=== PATIENT | female | born 1980 | race Two or more races ===

== ENCOUNTER 2019-03-12 21:58 | Emergency (ER) | payer MEDICARE ==
[~2019-03-12] VITALS: Ht 152.4 cm; Wt 113.4 kg
[2019-03-12 22:33] VITALS: BP 114/77
[2019-03-12 23:30] VITALS: BP 158/112
[2019-03-12 23:30] LABS: ABG PCO2 31.5 mmHg (35.0-45.0); ABG PH 7.497 (7.350-7.450); BE(B) 1.3 mmol/L (-2.0-2.0); HCO3act 23.8 mmol/L (22.0-26.0); pO2 62.6 mmHg (80.0-100.0)
--- NOTE | 2019-03-12 23:37 | ER.PDOC ---
General Chief Complaint: Cough/Congestion Stated Complaint: COUGH,CONGESTION Time seen by MD: 23:35 Source: patient Exam Limitations: no limitations History of Present Illness Initial Comments Fever, cough and congestion for 2 weeks. No fever for past few days. Timing/Duration: gradual Severity: moderate Associated Symptoms: fever/chills, runny nose, cough Allergies: Coded Allergies: No Known Allergies (Unverified , 03/12/19) Constitutional: see HPI EENTM: see HPI Respiratory: see HPI Cardiovascular: no symptoms reported Gastrointestinal: no symptoms reported All Other Systems: Reviewed and Negative Past Medical History Medical History: no pertinent history Surgical History: appendectomy Social History Alcohol Use: none Drug Use: none Physical Exam General Appearance: alert, no distress, other (obese) Nose: rhinorrhea Throat: pharynx nml, airway nml Neck: nml inspection, supple Respiratory: no resp.distress, decreased air movement, rhonchi Abdomen: non-tender, no organomegaly CVS: reg rate & rhythm, heart sounds nml Skin: color nml, no rash, warm/dry Extremities: non-tender, nml ROM, no pedal edema NEURO/PSYCH: oriented x 3, CN's nml as tested, motor nml, sensation nml, mood/affect nml Results/Orders Results/Orders Orders - JAY REBOLLEDO MD Influenza A&B (03/12/19 22:32) Strep Screen (03/12/19 22:32) Cbc With Auto Diff (03/12/19 23:14) Comprehensive Metabolic Panel (03/12/19 23:14) Arterial Blood Gas (03/12/19 23:14) Blood Culture (03/12/19 23:14) Probnp B-Type Printer Slotter Helper (03/12/19 23:14) Lactic Acid(Ml) (03/12/19 23:14) Xr Chest 2v (03/12/19 23:14) Codeine Phosphate/Guaifenesin (Robitussi (03/13/19 00:25) Vital Signs Date Time Temp Pulse Resp B/P (MAP) Pulse Ox O2 Delivery O2 Flow Rate FiO2 03/12/19 22:33 98.2 95 18 03/12/19 22:33 98.2 95 18 114/77 (89) 95 Room Air 03/12/19 22:33 98.2 95 18 95 Laboratory Tests Test 03/12/19 23:14 03/12/19 23:30 03/12/19 23:35 Blood Gas Sample Site RT BRACIAL ARTERY Blood pH 7.497 (7.350-7.450) Blood Gas PCO2 31.5 mmHg (35.0-45.0) L Blood Gas PO2 62.6 mmHg (80.0-100.0) L Blood Gas HCO3 23.8 mmol/L (22.0-26.0) Blood Gas Base Excess 1.3 mmol/L (-2.0-2.0) Abraham Test N/A Arterial Blood Oxygen Saturation 92.6 % (94.0-97.00) L Deoxyhemoglobin 7.3 % (0.0-5.0) H Carboxyhemoglobin 0.9 % (0.0-3.9) Methemoglobin 0.3 % (0.00-5.0) Total Hemoglobin 12.9 % (12.0-17.8) Total Oxygen Concentration 16.6 % (13.5-17.5) Blood Gas Temperature 37.0 Oxygen Delivery Method ROOM AIR FiO2 0.21 % (20-101) L Total Carbon Dioxide 24.8 mmol/L (23-27) Influenza Type A Antigen NEGATIVE (NEG) Influenza B Immunofluorescence NEGATIVE (NEG) Group A Streptococcus Screen NEGATIVE (NEGATIVE) White Blood Count 11.4 10^3/uL (4.5-11.0) H Red Blood Count 3.65 10^6/uL (4.00-5.20) L Hemoglobin 12.2 g/dL (12.0-15.0) Hematocrit 37.4 % (36.0-46.0) Mean Corpuscular Volume 102.5 fL (78-100) H Mean Corpuscular Hemoglobin 33.4 pg (26-34) Mean Corpuscular Hemoglobin Concent 32.6 g/dL (33-37) L Red Cell Distribution Width 17.3 % (11.5-14.5) H Platelet Count 180 10^3/uL (150-400) Mean Platelet Volume 11.4 fL (7.8-11.0) H Neutrophils (%) (Auto) 57.1 % (41.0-85.0) Lymphocytes (%) (Auto) 27.9 % (24.0-44.0) Monocytes (%) (Auto) 7.0 % (5.0-12.0) Neutrophils # (Auto) 6.5 10^3/uL (1.8-7.7) Lymphocytes # (Auto) 3.2 10^3/uL (1.0-4.8) Monocytes # (Auto) 0.8 10^3/uL (0.3-0.8) Absolute Immature Granulocyte (auto 0.21 10^3 u/L (0-2) Absolute Eosinophils (auto) 0.5 10^3/uL (0.0-0.2) H Immature Granulocytes % 1.90 % (0.00-0.50) H Eosinophils % 4.6 % (0.0-5.0) Basophils % 1.5 % (0.0-0.2) H Basophils # 0.2 10^3/uL (0.0-0.1) H Sodium Level 139 mmol/L (132-145) Potassium Level 4.0 mmol/L (3.6-5.2) Chloride Level 103.0 mmol/L (96-109) Carbon Dioxide Level 27.7 mmol/L (20.0-32) Anion Gap 12.3 Blood Urea Nitrogen 16 mg/dL (7-18) Creatinine 1.44 mg/dL (0.59-1.40) H Estimated GFR () 48.8 (>/=60) BUN/Creatinine Ratio 11.0 Glucose Level 192 mg/dL (70-110) H Lactic Acid Level 1.2 mmol/L (0.50-2.00) Calcium Level 8.5 mg/dL (8.4-10.5) Total Bilirubin 0.7 mg/dL (0.2-1.0) Aspartate Amino Transferase (AST) 43 U/L (0-35) H Alanine Aminotransferase (ALT) 79 U/L (12-78) H Alkaline Phosphatase 137 U/L (50-136) H Pro-B-Type Natriuretic Peptide 60 pg/mL (0-125) Total Protein 7.8 g/dL (6.4-8.2) Albumin 3.1 g/dL (3.4-5.0) L Globulin 4.7 Progress Progress CXR: Hazy density in both lower lung castañeda, primarily on the frontal exam, is of uncertain significance. This may represent density due to the patient's overlying breast tissues, but hazy pneumonia infiltrates cannot be totally ruled out. Recommend correlation with clinical findings and history. If needed for clinical management, noncontrast CT scan of the chest may be obtained, preferably with IV contrast, to rule out or confirmed the presence of pneumonia infiltrates. Departure Time of Disposition: 00:39 Disposition: 01 HOME, SELF-CARE Impression: Primary Impression: Acute bronchitis Condition: Stable Referrals: PCP,UNKNOWN (PCP) PRIMARY CARE PROVIDER Additional Instructions: Moxifloxacin Medrol dose pack Cheratussin AC Albuterol HFA F/U with PCP in 2-3 days Return to ED if worsening symptoms or concerns. Duration or Time Spent with Pa: 45 mins Problem Qualifiers Primary Impression: Acute bronchitis Bronchitis organism: unspecified organism Qualified Codes: J20.9 - Acute bronchitis, unspecified JAY REBOLLEDO MD Mar 12, 2019 23:37
[2019-03-12 23:43] LABS: BASOPHIL # 0.2 10^3/uL (0.0-0.1); BASOPHIL % 1.5 % (0.0-0.2); EOSINOPHIL # 0.5 10^3/uL (0.0-0.2); EOSINOPHIL % 4.6 % (0.0-5.0); LYMPHOCYTES # 3.2 10^3/uL (1.0-4.8); LYMPHOCYTES % 27.9 % (24.0-44.0); MEAN CORP HGB 33.4 pg (26-34); MONOCYTES # 0.8 10^3/uL (0.3-0.8); NEUTROPHIL # 6.5 10^3/uL (1.8-7.7); NEUTROPHILS % 57.1 % (41.0-85.0); RED CELL DISTRIBUTION WIDTH 17.3 % (11.5-14.5)
[2019-03-13 00:03] LABS: CALCIUM 8.5 mg/dL (8.4-10.5); CARBON DIOXIDE 27.7 mmol/L (20.0-32)
--- NOTE | 2019-03-13 00:12 | DIREP ---
PROCEDURE:CHEST 2 VIEWS COMPARISON:None. INDICATIONS:Cough FINDINGS: LUNGS/PLEURA:Hazy density in both lower lung castañeda. No large pleural effusion or dense alveolar consolidation. VASCULATURE:Normal. Unremarkable pulmonary vasculature. CARDIAC:Normal. No cardiac silhouette abnormality or cardiomegaly. MEDIASTINUM:Normal. No visible mass or adenopathy. BONES:No acute pathology. Mild dextroscoliosis of the lower T-spine. OTHER:Negative. CONCLUSION:Hazy density in both lower lung castañeda, primarily on the frontal exam, is of uncertain significance. This may represent density due to the patient's overlying breast tissues, but hazy pneumonia infiltrates cannot be totally ruled out. Recommend correlation with clinical findings and history. If needed for clinical management, noncontrast CT scan of the chest may be obtained, preferably with IV contrast, to rule out or confirmed the presence of pneumonia infiltrates. Dictated by: Rickey Gleason M.D. on 03/13/2019 at 00:09 AM
[2019-03-13] MEDS ORDERED: ROBITUSSIN AC PO STA (00:25)
[2019-03-13 00:30] VITALS: BP 140/69
[2019-03-13] MEDS ORDERED: ROBITUSSIN AC ONE (00:35)
[2019-03-13] MEDS ORDERED: ROCEPHIN IM STA (00:39)
[2019-03-13] MEDS ORDERED: ZITHROMAX PO STA (00:39)
[2019-03-13] MEDS ORDERED: LIDOCAINE 1% VIAL ONE (00:43)
[2019-03-13] MEDS ORDERED: ROCEPHIN ONE (00:44)
[2019-03-13] MEDS ORDERED: DECADRON IH STA (00:44)
[2019-03-13] MEDS ORDERED: ZITHROMAX ONE (00:44)
[2019-03-13] MEDS ORDERED: DUO 0.5-3(2.5) MG/3 ML IH STA (00:44)
[2019-03-13] MEDS ORDERED: SOLU-MEDROL ONE (00:44)
[2019-03-13] MEDS ORDERED: SOLU-MEDROL IM STA (00:44)
[2019-03-13] MEDS ORDERED: DUO 0.5-3(2.5) MG/3 ML IH ONE (00:46)
[2019-03-13] MEDS ORDERED: DECADRON ONE (00:46)
[2019-03-13 01:10] VITALS: BP 111/76
[2019-03-13 01:12] LABS: LYMPHOCYTE 24 % (25-36); MONOCYTE 8 % (3-9); SEGMENTED NEUTROPHILS 68 % (31-76)
== END 2019-03-13 01:10 | disposition home or self-care (01) ==
LOC: ER 21:58
DX: J20.9 Acute bronchitis, unspecified (principal)
CPT/HCPCS: 36415; 71046; 80053; 82803; 83605; 83880; 85025; 87040 ×2; 87070; 87804 ×2; 87880; 94640; 96372 ×2; 99285; J0696; J0745; J1100; J2001; J2930; J7620; Q0144

== ENCOUNTER 2021-10-05 11:39 | Inpatient (IN) | payer MEDICARE, MEDICAID ==
[~2021-10-05] VITALS: Ht 152.4 cm; Wt 99.8 kg
[2021-10-05] VITALS (7 sets, daily range): BP systolic 105–125; BP diastolic 61–81
--- NOTE | 2021-10-05 12:45 | NUR ---
BROOKE VELARDEA ON PHONE WITH DR COX TO DISCUSS POSSIBLE NEED OF CONSULT.
--- NOTE | 2021-10-05 12:47 | NUR ---
[facility] TO CONSULT CARE OF THE PT PER EDP
--- NOTE | 2021-10-05 13:23 | DIREP ---
PROCEDURE:XRAY HAND MIN 3 VW-LT COMPARISON:None. INDICATIONS:Infection R/O Osteomyelitis FINDINGS: BONES:Osteolysis is seen of the tuft of the distal phalanx of the thumb. JOINTS:Normal. SOFT TISSUES:Soft tissue swelling is seen of the thumb. OTHER:No additional findings. CONCLUSION:There is soft tissue swelling of the thumb with osteolysis of the tuft of the distal phalanx of the thumb suspicious for osteomyelitis. Dictated by: Mason Whitney M.D. on 10/05/2021 at 01:20 PM
[2021-10-05] MEDS ORDERED: VANCOMYCIN HCL 1 GM in NS 250ML 250 ML IV STA (13:53)
[2021-10-05] MEDS ORDERED: ZOSYN 3.375 GM 3.375 GM in NS 100ML 100 ML IV STA (13:53)
[2021-10-05] MEDS ORDERED: MORPHINE SULFATE IV STA (13:53)
[2021-10-05] MEDS ORDERED: MORPHINE SULFATE ONE (14:02)
[2021-10-05] MEDS ORDERED: NS 100ML 100 ML IV ONE ×2 (14:03→21:34)
[2021-10-05] MEDS ORDERED: NS 250ML 250 ML ONE ×2 (14:36→21:35)
[2021-10-05] MEDS ORDERED: VANCOMYCIN HCL 1 GM ONE (14:37)
[2021-10-05 15:23] LABS: BASOPHIL % 0.3 % (0.0-0.2); EOSINOPHIL # 0.3 10^3/uL (0.0-0.2); EOSINOPHIL % 2.7 % (0.0-5.0); LYMPHOCYTES # 3.09 10^3/uL1 (1.0-4.8); LYMPHOCYTES % 27.6 % (24.0-44.0); MEAN CORP HGB 33.4 pg (26-34); MONOCYTES # 0.6 10^3/uL (0.3-0.8); NEUTROPHIL # 7.1 10^3/uL (1.8-7.7); NEUTROPHILS % 63.2 % (41.0-85.0); PLATELET COUNT 307 10^3/uL (150-400); RED CELL DISTRIBUTION WIDTH 17.7 % (11.5-14.5)
[2021-10-05 15:25] LABS: CARBON DIOXIDE 25.6 mmol/L (20.0-32)
--- NOTE | 2021-10-05 16:14 | ER.PDOC ---
General Chief Complaint: Extremities Stated Complaint: EXTREMETIES Time seen by MD: 12:30 Source: patient, family Exam Limitations: no limitations History of Present Illness Initial Comments Infected left thumb for 8 days. Patient was seen by a Provider in [place] and given Acyclovir for 4 weeks ago. Since then, infection has gotten worse. Patient is complaining of pain and increased swelling. Severity: severe Quality: painful Identified Cause: no Allergies: Coded Allergies: codeine (Verified Allergy, Unknown, 10/05/21) Past Medical History Medical History: other (Down syndrome) Surgical History: cholecystectomy Family History Significant Family History: no pertinent family hx Social History Smoking: non-smoker Alcohol Use: none Drug Use: none Constitutional: no symptoms reported EENTM: no symptoms reported Respiratory: no symptoms reported Cardiovascular: no symptoms reported Gastrointestinal: no symptoms reported Musculoskeletal: see HPI Skin: see HPI All Other Systems: Reviewed and Negative Physical Exam General Appearance: alert, no distress Skin: abscess, pointing, fluctuant, with erythema (with bluish discoloration od skin of distal thumb) Location: LUE (thumb) With: warmth, tenderness, swelling, inflammation EENT: eyes nml inspection, lips/gums nml, pharynx nml Neck: trachea midline, no swelling Respiratory: no resp. distress, breath sounds nml CVS: reg. rate & rhythm, heart sounds nml Abdomen: non-tender, no organomegaly NEURO/PSYCH: oriented x 3, CN's nml as tested, motor nml, sensation nml, mood/affect nml Comments Distal left thumb has necrotic tissue. Incision and Drainage Incision and Drainage : Site: left thumb Blade Size: 11 I & D Procedure: betadine prep, probe/break up loculation, irrigated cavity w/saline, culture/gram stain, multiple sites Results/Orders Results/Orders Orders - JAY REBOLLEDO MD Xr Hand Lt (10/05/21 13:01) Wound Culture & Gram Stain (10/05/21 13:08) Blood Culture (10/05/21 13:53) Morphine Sulfate (Morphine Sulfate) (10/05/21 13:53) Vancomycin Hcl (Vancomycin Hcl) (10/05/21 13:53) Piperacillin Sodium/Tazobactam (Zosyn 3. (10/05/21 13:53) Lactic Acid(Ml) (10/05/21 13:54) Morphine Sulfate (Morphine Sulfate) (10/05/21 14:02) 0.9 % Sodium Chloride (Ns 100ml) (10/05/21 14:03) 0.9 % Sodium Chloride (Ns 250ml) (10/05/21 14:36) Vancomycin Hcl (Vancomycin Hcl) (10/05/21 14:37) Cbc With Auto Diff (10/05/21 15:13) Basic Metabolic Panel (10/05/21 15:13) PT (10/05/21 15:13) Partial Thromboplastin Time. (10/05/21 15:13) Vital Signs Date Time Temp Pulse Resp B/P (MAP) Pulse Ox O2 Delivery O2 Flow Rate FiO2 10/05/21 15:12 98.9 67 16 115/61 (79) 97 Room Air* 0 10/05/21 14:06 99.7 77 16 125/66 (85) 97 Room Air* 0 10/05/21 13:19 99.7 83 16 105/64 (78) 97 Room Air* 0 10/05/21 12:15 99.7 92 16 97 10/05/21 11:55 99.7 92 16 125/81 (96) 97 Room Air* 0 10/05/21 11:55 99.7 92 16 125/81 (96) 97 Room Air* 0 10/05/21 11:55 99.7 92 16 Administered Medications Medications (Trade) Dose Ordered Sig/Roxanne Route PRN Reason Start Time Stop Time Status Last Admin Dose Admin Morphine Sulfate (Morphine Sulfate) 4 mg STAT STAT IV 10/05/21 13:53 10/05/21 13:54 DC 10/05/21 14:20 4 MG Piperacillin Sod/ Tazobactam Sod 3.375 gm/Sodium Chloride 100 ml @ 200 mls/hr STAT STAT IV 10/05/21 13:53 10/05/21 14:22 DC 10/05/21 14:20 200 MLS/HR Vancomycin HCl 1 gm/Sodium Chloride 250 ml @ 175 mls/hr STAT STAT IV 10/05/21 13:53 10/05/21 15:18 DC 10/05/21 14:54 175 MLS/HR Laboratory Tests Test 10/05/21 14:00 10/05/21 14:18 10/05/21 15:13 White Blood Count 11.2 10^3/uL (4.5-11.0) H Red Blood Count 3.32 10^6/uL (4.00-5.20) L Hemoglobin 11.1 g/dL (12.0-15.0) L Hematocrit 36.3 % (36.0-46.0) Mean Corpuscular Volume 109.3 fL (78-100) H Mean Corpuscular Hemoglobin 33.4 pg (26-34) Mean Corpuscular Hemoglobin Concent 30.6 g/dL (33-36.5) L Red Cell Distribution Width 17.7 % (11.5-14.5) H Platelet Count 307 10^3/uL (150-400) Mean Platelet Volume 12.4 fL (7.8-11.0) H Neutrophils (%) (Auto) 63.2 % (41.0-85.0) Lymphocytes (%) (Auto) 27.6 % (24.0-44.0) Monocytes (%) (Auto) 5.0 % (5.0-12.0) Neutrophils # (Auto) 7.1 10^3/uL (1.8-7.7) Lymphocytes # (Auto) 3.09 10^3/uL1 (1.0-4.8) Monocytes # (Auto) 0.6 10^3/uL (0.3-0.8) Absolute Immature Granulocyte (auto 0.13 10^3 u/L (0-2) Absolute Eosinophils (auto) 0.3 10^3/uL (0.0-0.2) H Immature Granulocytes % 1.20 % (0.00-0.50) H Eosinophils % 2.7 % (0.0-5.0) Basophils % 0.3 % (0.0-0.2) H Basophils # 0.0 10^3/uL (0.0-0.1) Sodium Level 140 mmol/L (132-145) Potassium Level 4.0 mmol/L (3.6-5.2) Chloride Level 104.0 mmol/L (96-109) Carbon Dioxide Level 25.6 mmol/L (20.0-32) Glucose Level 143 mg/dL (70-110) H Blood Urea Nitrogen 13 mg/dL (7-18) Creatinine 1.44 mg/dL (0.59-1.40) H Calcium Level 8.3 mg/dL (8.4-10.5) L Anion Gap 14.4 Estimated GFR () 48.3 (>/=60) Est GFR (CKD-EPI)(Non-Afr Surinamese) 39.9 (>/=60) BUN/Creatinine Ratio 9.0 Lactic Acid Level 1.6 mmol/L (0.5-1.9) Prothrombin Time 11.0 SEC (9.1-11.5) Prothrombin Time INR (Non-Therap) 1.1 Activated Partial Thromboplast Time 29.6 SEC (22.5-33.1) Progress Progress X rays left thumb: There is soft tissue swelling of the thumb with osteolysis of the tuft of the distal phalanx of the thumb suspicious for osteomyelitis. Dr. Titus came and saw patient in the ED. ER DEPART Departure Time of Disposition: 16:15 Disposition: 09 ADMITTED INPATIENT Impression: Primary Impression: Osteomyelitis of finger of left hand Additional Impression: Abscess around left thumbnail Condition: Improved Referrals: PCP,UNKNOWN (PCP) PRIMARY CARE PROVIDER Comments Admitted to Dr. Monahan. Spoke with Dr. Titus who will consultl Duration or Time Spent with Pa: 45 min Problem Qualifiers JAY REBOLLEDO MD Oct 05, 2021 16:14
--- NOTE | 2021-10-05 16:38 | NUR ---
REPORT GIVEN TO MED SURG NURSE.
--- NOTE | 2021-10-05 18:26 | PCM.HP ---
HISTORY & PHYSICAL HISTORY & PHYSICAL DATE OF ADMISSION: October 05, 2021 CHIEF COMPLAINT: Left thumb infection over 1 week, Severe pain HISTORY OF PRESENT ILLNESS: 40-year-old female with previous history of Down syndrome was apparently in her usual health and about 1 week prior to this admission with her sister noticed her left thumb was swollen and some erythema was noted and patient was taken to the local emergency room where she was found diagnosed with herpetic mahsa infection and started on acyclovir and Tylenol for pain control but the symptoms progressively got worse and patient developed severe pain and discoloration of the thumb therefore patient was brought to this hospital for further evaluation and found to have possible osteomyelitis with abscess formation patient was admitted for further management family denies any medical condition other than Down syndrome ALLERGIES: Codeine-Reaction not known, Patient tolerated morphine well CURRENT MEDICATIONS: Acyclovir, Tylenol, OTC Motrin PAST MEDICAL HISTORY: Down syndrome, cholecystectomy and appendectomy SOCIAL HISTORY: Living with her mother currently she was brought here to this down from [place] and staying with her sister FAMILY HISTORY: Mother has diabetes mellitus hypertension and thyroid disease Sister has asthma and diabetes mellitus REVIEW OF SYSTEMS: No fever chills or rigors severe left thumb pain controlled with morphine no swallowing difficulty no chest pain shortness of breath cough or wheezing no abdominal pain no diarrhea no dysuria or hematuria head loss. More than 5 years prior to this admission All systems reviewed and negative except mentioned above VITAL SIGNS: Vital Signs Date Time Temp Pulse Resp B/P (MAP) Pulse Ox O2 Delivery O2 Flow Rate FiO2 10/05/21 17:53 Room Air 0.00 10/05/21 17:51 Room Air 0.00 10/05/21 16:42 62 16 116/72 (87) 96 Room Air* 0 10/05/21 15:12 98.9 67 16 115/61 (79) 97 Room Air* 0 10/05/21 14:06 99.7 77 16 125/66 (85) 97 Room Air* 0 10/05/21 13:19 99.7 83 16 105/64 (78) 97 Room Air* 0 10/05/21 12:15 99.7 92 16 97 10/05/21 11:55 99.7 92 16 125/81 (96) 97 Room Air* 0 10/05/21 11:55 99.7 92 16 125/81 (96) 97 Room Air* 0 21 10/05/21 11:55 99.7 92 16 PHYSICAL EXAMINATION: General patient is sitting on the bed not in acute distress pain is well controlled after morphine HEENT anicteric sclera pupil react light, Up slanting palpebral fissure Lungs: Air entry symmetrical no Rales or rhonchi heard Heart S1-S2 heard no murmur gallop appreciated Abdomen obese nontender bowel sounds present, No guarding no rigidity Extremity left thumb is dressed and no drainage noted over the dressing no phlebitis noted in the hand LABORATORY DATA: Laboratory Tests Test 10/05/21 14:00 10/05/21 14:18 10/05/21 15:13 White Blood Count 11.2 10^3/uL (4.5-11.0) Red Blood Count 3.32 10^6/uL (4.00-5.20) Hemoglobin 11.1 g/dL (12.0-15.0) Hematocrit 36.3 % (36.0-46.0) Mean Corpuscular Volume 109.3 fL (78-100) Mean Corpuscular Hemoglobin 33.4 pg (26-34) Mean Corpuscular Hemoglobin Concent 30.6 g/dL (33-36.5) Red Cell Distribution Width 17.7 % (11.5-14.5) Platelet Count 307 10^3/uL (150-400) Mean Platelet Volume 12.4 fL (7.8-11.0) Neutrophils (%) (Auto) 63.2 % (41.0-85.0) Lymphocytes (%) (Auto) 27.6 % (24.0-44.0) Monocytes (%) (Auto) 5.0 % (5.0-12.0) Neutrophils # (Auto) 7.1 10^3/uL (1.8-7.7) Lymphocytes # (Auto) 3.09 10^3/uL1 (1.0-4.8) Monocytes # (Auto) 0.6 10^3/uL (0.3-0.8) Absolute Immature Granulocyte (auto 0.13 10^3 u/L (0-2) Absolute Eosinophils (auto) 0.3 10^3/uL (0.0-0.2) Immature Granulocytes % 1.20 % (0.00-0.50) Eosinophils % 2.7 % (0.0-5.0) Basophils % 0.3 % (0.0-0.2) Basophils # 0.0 10^3/uL (0.0-0.1) Sodium Level 140 mmol/L (132-145) Potassium Level 4.0 mmol/L (3.6-5.2) Chloride Level 104.0 mmol/L (96-109) Carbon Dioxide Level 25.6 mmol/L (20.0-32) Glucose Level 143 mg/dL (70-110) Blood Urea Nitrogen 13 mg/dL (7-18) Creatinine 1.44 mg/dL (0.59-1.40) Calcium Level 8.3 mg/dL (8.4-10.5) Anion Gap 14.4 Estimated GFR () 48.3 (>/=60) Est GFR (CKD-EPI)(Non-Afr Faroese) 39.9 (>/=60) BUN/Creatinine Ratio 9.0 Lactic Acid Level 1.6 mmol/L (0.5-1.9) Prothrombin Time 11.0 SEC (9.1-11.5) Prothrombin Time INR (Non-Therap) 1.1 Activated Partial Thromboplast Time 29.6 SEC (22.5-33.1) IMAGING: X-ray hand CONCLUSION:There is soft tissue swelling of the thumb with osteolysis of the tuft of the distal phalanx of the thumb suspicious for osteomyelitis. SUMMARY: 40-year-old female with Down syndrome developed left thumb possible paronychia progressed to abscess formation and osteomyelitis We will start on empiric antibiotic with vancomycin and Zosyn for now and surgical consult was obtained with Dr. Titus for possible debridement, pain control with morphine 4 mg IV Q6 hourly as needed, tetanus shot, test also will be ordered, considering osteomyelitis may need 6 weeks of IV antibiotic, Will consult case management for further arrangement ASSESSMENT/PLAN: Left thumb first digit osteomyelitis with abscess Down syndrome Obesity Early menopause Plan: Empiric antibiotic, surgical consult, Pain control, PT OT, Reevaluate the patient in a.m. DAWSON BYERS MD Oct 05, 2021 18:25
[2021-10-05] MEDS ORDERED: ZOSYN 3.375 GM 3.375 GM in NS 100ML 100 ML IV SCH (18:30)
[2021-10-05] MEDS ORDERED: BOOSTRIX IM ONE ×2 (18:30→21:41)
[2021-10-05] MEDS ORDERED: VANCOMYCIN 1.25 GM/250 ML BAG 250 ML IV SCH (18:30)
--- NOTE | 2021-10-05 19:01 | NUR ---
REPORT REPORT TO ONCOMING SHIFT
[2021-10-05] MEDS: ZOSYN 3.375 GM 3.375 GM in NS 100ML 100 ML IV SCH (21:52)
[2021-10-06 01:17] VITALS: BP 107/51
[2021-10-06] MEDS ORDERED: NS 100ML 100 ML IV ONE (02:34)
[2021-10-06] MEDS: ZOSYN 3.375 GM 3.375 GM in NS 100ML 100 ML IV SCH ×2 (02:43→08:30)
[2021-10-06] MEDS: TYLENOL PO PRN (02:53)
[2021-10-06 05:43] VITALS: BP 101/58
[2021-10-06 07:07] VITALS: BP 105/67
[2021-10-06 08:50] LABS: BASOPHIL % 0.3 % (0.0-0.2); EOSINOPHIL # 0.3 10^3/uL (0.0-0.2); EOSINOPHIL % 2.9 % (0.0-5.0); LYMPHOCYTES # 3.19 10^3/uL1 (1.0-4.8); MEAN CORP HGB 33.5 pg (26-34); MONOCYTES # 0.4 10^3/uL (0.3-0.8); MONOCYTES % 5.1 % (5.0-12.0); NEUTROPHIL # 4.6 10^3/uL (1.8-7.7); NEUTROPHILS % 53.8 % (41.0-85.0); RED CELL DISTRIBUTION WIDTH 16.9 % (11.5-14.5)
[2021-10-06 08:52] LABS: CARBON DIOXIDE 25.2 mmol/L (20.0-32)
[2021-10-06] MEDS ORDERED: NS 250ML 250 ML ONE (09:51)
[2021-10-06] MEDS: VANCOMYCIN 1.25 GM/250 ML BAG 250 ML IV SCH ×2 (10:48→23:01)
[2021-10-06 11:17] VITALS: BP 112/58
[2021-10-06] MEDS: OXY-IR PO PRN (11:33)
--- NOTE | 2021-10-06 11:56 | PRM.PN ---
Subjective Subjective Date: Oct 06, 2021 Time: 09:00 Subjective Awake, does not appear to be in distress, left vomiting in dressing. Review of Systems Musculoskeletal: hand pain (Left thumb pain) Other Review of other 14 systems negative except was mentioned above. Allergies: Coded Allergies: codeine (Verified Allergy, Unknown, 10/05/21) Objective Vitals and I/O Vital Sign - Last 24 Hours 10/05/21 10/05/21 10/05/21 10/05/21 11:55 11:55 11:55 12:15 Temp 99.7 99.7 99.7 99.7 Pulse 92 92 92 92 Resp 16 16 16 16 B/P (MAP) 125/81 (96) 125/81 (96) Pulse Ox 97 97 97 O2 Delivery Room Air* Room Air* O2 Flow Rate 0 0 FiO2 10/05/21 10/05/21 10/05/21 10/05/21 13:19 14:06 15:12 16:42 Temp 99.7 99.7 98.9 Pulse 83 77 67 62 Resp 16 16 16 16 B/P (MAP) 105/64 (78) 125/66 (85) 115/61 (79) 116/72 (87) Pulse Ox 97 97 97 96 O2 Delivery Room Air* Room Air* Room Air* Room Air* O2 Flow Rate 0 0 0 0 FiO2 10/05/21 10/05/21 10/05/21 10/06/21 17:51 17:53 20:13 00:16 Temp 98.0 Pulse 69 Resp 18 B/P (MAP) 110/74 (86) Pulse Ox 95 O2 Delivery Room Air Room Air Room Air* Room Air O2 Flow Rate 0.00 0.00 0 0.00 FiO2 10/06/21 10/06/21 10/06/21 10/06/21 01:17 05:43 07:07 07:57 Temp 97.6 97.5 98.0 Pulse 65 67 59 Resp 16 17 19 B/P (MAP) 107/51 (69) 101/58 (72) 105/67 (80) Pulse Ox 95 98 92 O2 Delivery Room Air* Room Air* Room Air* Room Air O2 Flow Rate 0 0 0 0.00 FiO2 10/06/21 11:17 Temp 98.2 Pulse 70 Resp 18 B/P (MAP) 112/58 (76) Pulse Ox 93 O2 Delivery Room Air* O2 Flow Rate 0 FiO2 21 Intake and Output 10/06/21 07:00 Intake Total 750 ml Balance 750 ml General: Alert, No acute distress HEENT: Atraumatic Neck: Supple, No JVD Lungs: Clear to auscultation, Normal air movement Heart: Regular rate, Normal S1, Normal S2 Abdomen: Soft, No tenderness Extremities: No clubbing, No cyanosis Skin: Other (Left thumb dressing) Neuro: Sensation intact, Other (Patient has Down syndrome) Psych/Mental Status: Other (Down syndrome) All Results(Lab/Rad) Laboratory Tests Test 10/05/21 14:00 10/05/21 14:18 10/05/21 15:13 10/06/21 04:05 White Blood Count 11.2 10^3/uL 8.6 10^3/uL Red Blood Count 3.32 10^6/uL 3.28 10^6/uL Hemoglobin 11.1 g/dL 11.0 g/dL Hematocrit 36.3 % 35.0 % Mean Corpuscular Volume 109.3 fL 106.7 fL Mean Corpuscular Hemoglobin 33.4 pg 33.5 pg Mean Corpuscular Hemoglobin Concent 30.6 g/dL 31.4 g/dL Red Cell Distribution Width 17.7 % 16.9 % Platelet Count 307 10^3/uL 291 10^3/uL Mean Platelet Volume 12.4 fL 12.3 fL Neutrophils (%) (Auto) 63.2 % 53.8 % Lymphocytes (%) (Auto) 27.6 % 37.0 % Monocytes (%) (Auto) 5.0 % 5.1 % Neutrophils # (Auto) 7.1 10^3/uL 4.6 10^3/uL Lymphocytes # (Auto) 3.09 10^3/uL1 3.19 10^3/uL1 Monocytes # (Auto) 0.6 10^3/uL 0.4 10^3/uL Absolute Immature Granulocyte (auto 0.13 10^3 u/L 0.08 10^3 u/L Absolute Eosinophils (auto) 0.3 10^3/uL 0.3 10^3/uL Immature Granulocytes % 1.20 % 0.90 % Eosinophils % 2.7 % 2.9 % Basophils % 0.3 % 0.3 % Basophils # 0.0 10^3/uL 0.0 10^3/uL Sodium Level 140 mmol/L 141 mmol/L Potassium Level 4.0 mmol/L 3.7 mmol/L Chloride Level 104.0 mmol/L 105.0 mmol/L Carbon Dioxide Level 25.6 mmol/L 25.2 mmol/L Glucose Level 143 mg/dL 138 mg/dL Blood Urea Nitrogen 13 mg/dL 17 mg/dL Creatinine 1.44 mg/dL 1.49 mg/dL Calcium Level 8.3 mg/dL 7.9 mg/dL Anion Gap 14.4 14.5 Estimated GFR () 48.3 46.4 Est GFR (CKD-EPI)(Non-Afr Egyptian) 39.9 38.4 BUN/Creatinine Ratio 9.0 11.0 Lactic Acid Level 1.6 mmol/L Prothrombin Time 11.0 SEC Prothrombin Time INR (Non-Therap) 1.1 Activated Partial Thromboplast Time 29.6 SEC Thyroid Stimulating Hormone (TSH) 58.190 mIU/mL Serum HCG, Qualitative NEGATIVE Current Medications Medications (Trade) Dose Ordered Sig/Roxanne Route PRN Reason Start Time Stop Time Status Last Admin Dose Admin Morphine Sulfate (Morphine Sulfate) 4 mg STAT STAT IV 10/05/21 13:53 10/05/21 13:54 DC 10/05/21 14:20 Vancomycin HCl 1 gm/Sodium Chloride 250 ml @ 175 mls/hr STAT STAT IV 10/05/21 13:53 10/05/21 15:18 DC 10/05/21 14:54 Piperacillin Sod/ Tazobactam Sod 3.375 gm/Sodium Chloride 100 ml @ 200 mls/hr STAT STAT IV 10/05/21 13:53 10/05/21 14:22 DC 10/05/21 14:20 Morphine Sulfate (Morphine Sulfate) 2 mg STK-MED ONCE .ROUTE 10/05/21 14:02 10/05/21 14:03 DC Sodium Chloride 100 ml @ ud STK-MED ONCE IV 10/05/21 14:03 10/05/21 14:03 DC Sodium Chloride 250 ml @ ud STK-MED ONCE .ROUTE 10/05/21 14:36 10/05/21 14:37 DC Vancomycin HCl 1 ml @ ud STK-MED ONCE .ROUTE 10/05/21 14:37 10/05/21 14:37 DC Piperacillin Sod/ Tazobactam Sod 3.375 gm/Sodium Chloride 100 ml @ 200 mls/hr Q6H IV 10/05/21 18:30 10/05/21 21:36 DC Morphine Sulfate (Morphine Sulfate) 4 mg Q6HR PRN IV PAIN 7 - 10 10/05/21 18:30 11/04/21 18:29 Acetaminophen (Tylenol) 650 mg Q6H PRN PO PAIN 1 - 3 10/05/21 18:30 11/04/21 18:29 10/06/21 02:53 Diphtheria/ Tetanus/Acell Pertussis (Boostrix) 0.5 ml ONCE ONCE IM 10/05/21 18:30 10/05/21 19:54 DC 10/05/21 22:43 Oxycodone HCl (Oxy-Ir) 5 mg Q6HR PRN PO pain 4-6 10/05/21 20:30 11/04/21 20:29 10/06/21 11:33 Sodium Chloride 100 ml @ ud STK-MED ONCE IV 10/05/21 21:34 10/05/21 21:34 DC Sodium Chloride 250 ml @ ud STK-MED ONCE .ROUTE 10/05/21 21:35 10/05/21 21:35 DC Piperacillin Sod/ Tazobactam Sod 3.375 gm/Sodium Chloride 100 ml @ 200 mls/hr Q6H IV 10/05/21 20:30 11/04/21 20:29 10/06/21 08:30 Diphtheria/ Tetanus/Acell Pertussis (Boostrix) 0.5 ml STK-MED ONCE IM 10/05/21 21:41 10/05/21 21:41 DC Sodium Chloride 100 ml @ ud STK-MED ONCE IV 10/06/21 02:34 10/06/21 02:35 DC Sodium Chloride 250 ml @ ud STK-MED ONCE .ROUTE 10/06/21 09:51 10/06/21 09:51 DC Assessment/Plan Assessment/Plan Assessment/Plan 40-year-old female with Down syndrome developed left thumb possible paronychia progressed to abscess formation and osteomyelitis We will start on empiric antibiotic with vancomycin and Zosyn for now and surgical consult was obtained with Dr. Titus for possible debridement, pain control with morphine 4 mg IV Q6 hourly as needed, tetanus shot, test also will be ordered, considering osteomyelitis may need 6 weeks of IV antibiotic, Will consult case management for further arrangement ASSESSMENT/PLAN: Left thumb first digit osteomyelitis with abscess Down syndrome Obesity Early menopause Plan: Empiric antibiotic, orthopedic consult, Pain control Problems: (1) Osteomyelitis of finger of left hand Status: Acute ICD Code: M86.9 - Osteomyelitis, unspecified SNOMED: [id number], [id number] (2) Abscess around left thumbnail Status: Acute ICD Code: L03.012 - Cellulitis of left finger SNOMED: [id number], [id number] (3) Down syndrome ICD Code: Q90.9 - Down syndrome, unspecified SNOMED: 05731214, [id number] SILVANA CARRILLO MD Oct 06, 2021 11:56
[2021-10-06] MEDS: LACTATED RINGERS 1,000 ML IV SCH (12:01)
[2021-10-06] MEDS: MAXIPIME 1 GM in NS 100ML 100 ML IV SCH ×2 (13:51→21:49)
[2021-10-06] MEDS ORDERED: LIDOCAINE HCL VISCOUS ONE (15:07)
[2021-10-06] MEDS: MORPHINE SULFATE IV PRN (15:15)
[2021-10-06] MEDS ORDERED: XYLOCAINE TP PRN (15:30)
[2021-10-06 16:06] VITALS: BP 110/62
--- NOTE | 2021-10-06 18:00 | NUR ---
DISCHARGE PLAN PER ID DAILY MEETING - PATIENT WILL NEED 6 WEEKS OF IV ABX THREAPY AFTER WOUND CULTURES ID AND SENS COMPLETED. [email or web address] AND VISITED WITH PATIENT'S SISTER - AL BLANCHARD ABOUT DISCHARGE PLANS, NEEDS AND GOALS. PER AL - PATIENT'S SISTER AND PATIENT'S MOTHER BOTH HAVE DOWN SYNDROME AND "THEY CAN NOT BE APART FROM EACH OTHER." PATIENT WAS LIVING IN [place], [place], BUT PATIENT AND PATIENT'S MOM WILL BE STAYING WITH PATIENT'S SISTER FOR AT LEAST 6 MONTHS OR MORE. PATIENT'S BROTHER STILL GETS THE MAIL FROM PATIENT'S ADDRESS IN [place] AND SENDS TO THEM WHEN VERIFYING ADDRESS. PATIENT CURRENTLY HAS A WALKER AND WHEELCHAIR AND CONTRIBUTES TO CONVERSATION AND HAS "TV, COLORING BOOK, PAPER." WHEN ASKED ABOUT ANY MEDICAL EQUIPMENT IN THE HOME. PATIENT PCP IN [facility] WAS DR HERNANDEZ, BUT HE RECENTLY RETIRED AND PATIENT HAS A F/U APPT WITH [facility] IN [place], [place] ON OCT 28, 2021 AND THEY PLAN ON KEEPING THAT APPT. KAILASH SPOKE WITH AL ABOUT DISCHARGE OPTIONS OF PATIENT GOING TO LTAC AND PER AL "THEY CAN NOT HANDLE BEING APART FROM EACH OTHER." AND SHE DECLINES ANY LTAC OR SNF. KAILASH EDUCATED ON PCP WHILE PATIENT IN THIS AREA AND AL WOULD LIKE TO GET PATIENT SET UP WITH A PCP IN [place]. AL EDUCATED ON THE POSSIBILITY OF PATIENT NEEDING IV ABX THERAPY FOR 6 WEEKS AND REQUEST TO SEE IF THEY CAN DO IV ABX THERAPY@HOME. PER AL - AL HAS SEVERAL ADULT KIDS AND HER AND HER SPOUSE THAT CAN LEARN HOW TO DO IV THERAPY IF ABLE TO DO@HOME. REPORTS THAT HER DIL WORKS FOR [facility] [employer] AND WOULD LIKE [facility] [employer] IF POSSIBLE. WOULD LIKE TO HAVE [facility] FOR IV ABX THERAPY WHEN ABX CHOSEN BY DOCTOR, IF NEEDED. AL SIGNS [facility] CHOICE LETTER OF THE SAME AND [facility] VENDOR OF CHOICE LETTER FOR CHART. CM OBTAINED PACKET FOR PCP FROM [facility] AND GAVE TO AL TO FILL OUT. CM SPOKE WITH PATIENT'S NURSE DEBBIE AND SHE WILL FAX IT TO [facility] WHEN COMPLETED. KAILASH SPOKE WITH [email or web address]@[email or web address] AND SHE IS GOING TO CHECK PATIENT'S INSURANCE AND SEE IF PATIENT IS IN NETWORK AND THEY CAN ACCEPT PATIENT AND WILL LET CM KNOW. CM WILL CONTINUE TO FOLLOW. Addendum: 10/07/21 at 1630 by Lizy Parmar RN,Case Managemen RN CM CONTACTED LENARD [email or web address] AND FAXED INITIAL CLINICALS TO [facility] WITH INQUIRY OF [facility] ABLE TO LET PATIENT'S MOM WITH DOWN SYNDROME STAY WITH PATIENT. INFORMED@THAT TIME PER LENARD CHERRY THAT IT WAS AN OPTION. KAILASH @BEDSIDE AND SPOKE WITH AL - PATIENT'S SISTER AND INFORMED THAT PATIENT'S MOM COULD STAY WITH PATIENT 04/10 IF THEY WANTED TO GO TO LTAC INSTEAD OF HOME FOR 6 WEEKS OF IV ABX THERAPY. AL REPORTS THAT THEY WOULD PREFER TO GO HOME WITH IV ABX AND HOME HEALTH. AL HAD FILLED OUT PATIENT'S PAPERWORK AND PER JOANNE - PATIENT'S NURSE SHE FAXED THE INFORMATION OVER TO [facility] YESTERDAY. KAILASH CONTACTED [facility] AND STILL AWAITING TO SEE IF DR MERAZ WILL ACCEPT PATIENT FOR PCP. KAILASH NOTIFIED DR PINA THAT PATIENT'S CULTURES RETURNED AND INFORMED@THAT TIME THAT HE HAD CONSULTED WITH INFECTION TELE DOC AND THAT THEY WOULD KNOW IN THE MORNING WHICH ABX AND FOR HOW LONG. KAILASH SPOKE WITH AL AND AL WOULD PREFER [facility] IF POSSIBLE, BUT IF DOCTOR NEEDS TO ORDER ONE IN THE AREA THAT SHE IS GOOD WITH THAT ALSO. KAILASH WILL CONTINUE TO FOLLOW. KAILASH CONTACTED AL AND PATIENT WILL BE GOING TO PATIENT'S SISTER'S HOME AL BLANCHARD@[id number] IN [place], [place]. CM UPDATED PATIENT'S INFO IN ADM.
[2021-10-06 20:00] VITALS: BP 90/42
[2021-10-07 00:18] VITALS: BP 91/51
[2021-10-07] MEDS: TYLENOL PO PRN (01:31)
--- NOTE | 2021-10-07 03:13 | CNH ---
DATE OF CONSULTATION: 10/06/2021 DICTATOR NAME: George Titus MD HISTORY OF PRESENT ILLNESS: The patient is a 40-year-old female who began having pain and swelling about the left thumb approximately 7 to 8 days ago. The patient was seen in [place] and placed on some acyclovir. The patient was seen in the Emergency Room yesterday by Dr. Arredondo with complaints of swelling and pain about the thumb. The x-ray showed some osteolysis about the very tip of the distal phalanx. The patient's white count was elevated at 11.2. The patient had an I and D of the thumb performed in the Emergency Room by Dr. Arredondo. The patient's cultures have grown out gram-positive cocci. The exam of the thumb shows that she has a distal incision about her thumb where Dr. Arredondo performed an I and D. She has diffuse swelling and redness. The patient had some partial thickness skin necrosis extending from the middle of the proximal phalanx distally to the fingertip. ASSESSMENT: Osteomyelitis of the left thumb distal phalanx with skin necrosis. PLAN: The patient will be admitted and started on IV antibiotics. I will have the wound care team debride some of the necrotic material and basically let the skin declare itself. At some point, she will need I and D with debridement of the distal portion of her distal phalanx, but at this point, I would prefer the skin to declare itself before we proceed with other surgical intervention. The patient and the family understand the treatment plan and agree. George Titus MD DR: ANTOINE/KENA/VIKASH TID: [id number] RECEIPT: [id number]
[2021-10-07 04:11] VITALS: BP 108/72
[2021-10-07] MEDS: LACTATED RINGERS 1,000 ML IV SCH ×2 (04:20→14:40)
[2021-10-07 04:43] LABS: BASOPHIL % 0.2 % (0.0-0.2); EOSINOPHIL # 0.3 10^3/uL (0.0-0.2); EOSINOPHIL % 3.6 % (0.0-5.0); LYMPHOCYTES # 3.13 10^3/uL1 (1.0-4.8); LYMPHOCYTES % 37.7 % (24.0-44.0); MEAN CORP HGB 33.5 pg (26-34); MONOCYTES # 0.3 10^3/uL (0.3-0.8); MONOCYTES % 3.7 % (5.0-12.0); NEUTROPHIL # 4.5 10^3/uL (1.8-7.7); NEUTROPHILS % 54.8 % (41.0-85.0); PLATELET COUNT 292 10^3/uL (150-400); RED CELL DISTRIBUTION WIDTH 16.7 % (11.5-14.5)
[2021-10-07 04:50] LABS: CARBON DIOXIDE 24.3 mmol/L (20.0-32)
[2021-10-07] MEDS: MAXIPIME 1 GM in NS 100ML 100 ML IV SCH ×3 (05:56→21:29)
[2021-10-07] MEDS: LEVOTHYROXINE SODIUM PO SCH (05:56)
[2021-10-07 07:18] LABS: FOLLICLE STIMULATING HORMONE 13.5 mIU/mL (.)
[2021-10-07 07:23] VITALS: BP 102/62
[2021-10-07] MEDS: MORPHINE SULFATE IV PRN (09:40)
[2021-10-07] MEDS: VANCOMYCIN 1.25 GM/250 ML BAG 250 ML IV SCH ×2 (11:20→22:00)
[2021-10-07 11:26] VITALS: BP 148/95
--- NOTE | 2021-10-07 12:40 | PRM.PN ---
Subjective Subjective Date: Oct 07, 2021 Time: 09:00 Subjective Patient is overall is doing okay. Afebrile. Remains on IV antibiotics. Wound is growing gram-positive cocci. Still awaiting Final identification and sensitivities.Seen by orthopedics. Wound care. Review of Systems Musculoskeletal: hand pain (Left thumb pain) Other Review of other 14 systems except was mentioned above. Allergies: Coded Allergies: codeine (Verified Allergy, Unknown, 10/05/21) Objective Vitals and I/O Vital Sign - Last 24 Hours 10/06/21 10/06/21 10/06/21 10/07/21 16:06 20:00 20:07 00:18 Temp 97.9 98.7 97.5 Pulse 74 76 76 Resp 19 18 18 B/P (MAP) 110/62 (78) 90/42 (58) 91/51 (64) Pulse Ox 93 96 92 O2 Delivery Room Air* Room Air* Room Air Room Air* O2 Flow Rate 0 0 0.00 0 FiO2 21 21 21 10/07/21 10/07/21 10/07/21 10/07/21 04:11 07:23 08:13 11:26 Temp 97.8 97.9 98.2 Pulse 64 55 62 Resp 17 18 19 B/P (MAP) 108/72 (84) 102/62 (75) 148/95 (112) Pulse Ox 99 94 98 O2 Delivery Room Air* Room Air* Room Air Room Air* O2 Flow Rate 0 0 0.00 0 FiO2 21 21 21 Intake and Output 10/07/21 07:00 Intake Total 1350 ml Balance 1350 ml General: Alert, No acute distress HEENT: Atraumatic Neck: Supple, No JVD Lungs: Clear to auscultation, Normal air movement Heart: Regular rate, Normal S1, Normal S2 Abdomen: Soft, No tenderness Extremities: No clubbing, No cyanosis Skin: Other (Left thumb Distal digit, discolored, drainage, tender.) Neuro: Sensation intact, Other (Patient has Down syndrome) Psych/Mental Status: Other (Down syndrome) All Results(Lab/Rad) Laboratory Tests Test 10/05/21 14:00 10/05/21 14:18 10/05/21 15:13 10/06/21 04:05 White Blood Count 11.2 10^3/uL 8.6 10^3/uL Red Blood Count 3.32 10^6/uL 3.28 10^6/uL Hemoglobin 11.1 g/dL 11.0 g/dL Hematocrit 36.3 % 35.0 % Mean Corpuscular Volume 109.3 fL 106.7 fL Mean Corpuscular Hemoglobin 33.4 pg 33.5 pg Mean Corpuscular Hemoglobin Concent 30.6 g/dL 31.4 g/dL Red Cell Distribution Width 17.7 % 16.9 % Platelet Count 307 10^3/uL 291 10^3/uL Mean Platelet Volume 12.4 fL 12.3 fL Neutrophils (%) (Auto) 63.2 % 53.8 % Lymphocytes (%) (Auto) 27.6 % 37.0 % Monocytes (%) (Auto) 5.0 % 5.1 % Neutrophils # (Auto) 7.1 10^3/uL 4.6 10^3/uL Lymphocytes # (Auto) 3.09 10^3/uL1 3.19 10^3/uL1 Monocytes # (Auto) 0.6 10^3/uL 0.4 10^3/uL Absolute Immature Granulocyte (auto 0.13 10^3 u/L 0.08 10^3 u/L Absolute Eosinophils (auto) 0.3 10^3/uL 0.3 10^3/uL Immature Granulocytes % 1.20 % 0.90 % Eosinophils % 2.7 % 2.9 % Basophils % 0.3 % 0.3 % Basophils # 0.0 10^3/uL 0.0 10^3/uL Sodium Level 140 mmol/L 141 mmol/L Potassium Level 4.0 mmol/L 3.7 mmol/L Chloride Level 104.0 mmol/L 105.0 mmol/L Carbon Dioxide Level 25.6 mmol/L 25.2 mmol/L Glucose Level 143 mg/dL 138 mg/dL Blood Urea Nitrogen 13 mg/dL 17 mg/dL Creatinine 1.44 mg/dL 1.49 mg/dL Calcium Level 8.3 mg/dL 7.9 mg/dL Anion Gap 14.4 14.5 Estimated GFR () 48.3 46.4 Est GFR (CKD-EPI)(Non-Afr Chilean) 39.9 38.4 BUN/Creatinine Ratio 9.0 11.0 Lactic Acid Level 1.6 mmol/L Prothrombin Time 11.0 SEC Prothrombin Time INR (Non-Therap) 1.1 Activated Partial Thromboplast Time 29.6 SEC Thyroid Stimulating Hormone (TSH) 58.190 mIU/mL Serum HCG, Qualitative NEGATIVE Current Medications Medications (Trade) Dose Ordered Sig/Roxanne Route PRN Reason Start Time Stop Time Status Last Admin Dose Admin Morphine Sulfate (Morphine Sulfate) 4 mg STAT STAT IV 10/05/21 13:53 10/05/21 13:54 DC 10/05/21 14:20 Vancomycin HCl 1 gm/Sodium Chloride 250 ml @ 175 mls/hr STAT STAT IV 10/05/21 13:53 10/05/21 15:18 DC 10/05/21 14:54 Piperacillin Sod/ Tazobactam Sod 3.375 gm/Sodium Chloride 100 ml @ 200 mls/hr STAT STAT IV 10/05/21 13:53 10/05/21 14:22 DC 10/05/21 14:20 Morphine Sulfate (Morphine Sulfate) 2 mg STK-MED ONCE .ROUTE 10/05/21 14:02 10/05/21 14:03 DC Sodium Chloride 100 ml @ ud STK-MED ONCE IV 10/05/21 14:03 10/05/21 14:03 DC Sodium Chloride 250 ml @ ud STK-MED ONCE .ROUTE 10/05/21 14:36 10/05/21 14:37 DC Vancomycin HCl 1 ml @ ud STK-MED ONCE .ROUTE 10/05/21 14:37 10/05/21 14:37 DC Piperacillin Sod/ Tazobactam Sod 3.375 gm/Sodium Chloride 100 ml @ 200 mls/hr Q6H IV 10/05/21 18:30 10/05/21 21:36 DC Morphine Sulfate (Morphine Sulfate) 4 mg Q6HR PRN IV PAIN 7 - 10 10/05/21 18:30 11/04/21 18:29 Acetaminophen (Tylenol) 650 mg Q6H PRN PO PAIN 1 - 3 10/05/21 18:30 11/04/21 18:29 10/06/21 02:53 Diphtheria/ Tetanus/Acell Pertussis (Boostrix) 0.5 ml ONCE ONCE IM 10/05/21 18:30 10/05/21 19:54 DC 10/05/21 22:43 Oxycodone HCl (Oxy-Ir) 5 mg Q6HR PRN PO pain 4-6 10/05/21 20:30 11/04/21 20:29 10/06/21 11:33 Sodium Chloride 100 ml @ ud STK-MED ONCE IV 10/05/21 21:34 10/05/21 21:34 DC Sodium Chloride 250 ml @ ud STK-MED ONCE .ROUTE 10/05/21 21:35 10/05/21 21:35 DC Piperacillin Sod/ Tazobactam Sod 3.375 gm/Sodium Chloride 100 ml @ 200 mls/hr Q6H IV 10/05/21 20:30 11/04/21 20:29 10/06/21 08:30 Diphtheria/ Tetanus/Acell Pertussis (Boostrix) 0.5 ml STK-MED ONCE IM 10/05/21 21:41 10/05/21 21:41 DC Sodium Chloride 100 ml @ ud STK-MED ONCE IV 10/06/21 02:34 10/06/21 02:35 DC Sodium Chloride 250 ml @ ud STK-MED ONCE .ROUTE 10/06/21 09:51 10/06/21 09:51 DC Assessment/Plan Assessment/Plan Assessment/Plan 40-year-old female with Down syndrome developed left thumb possible paronychia progressed to abscess formation and osteomyelitis We will start on empiric antibiotic with vancomycin and Zosyn for now and surgical consult was obtained with Dr. Titus for possible debridement, pain control with morphine 4 mg IV Q6 hourly as needed, tetanus shot, test also will be ordered, considering osteomyelitis may need 6 weeks of IV antibiotic, Will consult case management for further arrangement ASSESSMENT/PLAN: Left thumb first digit osteomyelitis with abscess Down syndrome Obesity Early menopause Plan: Continue IV antibiotics for now, awaiting ID and sensitivity Appreciate orthopedics input Wound care We will consult infectious disease for evaluation further recommendations regarding antibiotics, including duration. Probably patient will need a PICC line. SILVANA CARRILLO MD Oct 07, 2021 12:40
[2021-10-07] MEDS: OXY-IR PO PRN (13:39)
[2021-10-07 15:43] VITALS: BP 132/60
--- NOTE | 2021-10-07 16:42 | TELE.CONS ---
Consultation Reason for Consult: Reason for Consultation: osteomyelitis History of Present Illness History of Patient Comments 40-year-old female with previous history of Down syndrome presented with left thumb swollen and erythema she was first taken to the local emergency room where she was found diagnosed with herpetic mahsa infection and started on acyclovir and Tylenol for pain control but the symptoms progressively got worse and patient developed severe pain and discoloration of the thumb therefore patient was brought to this hospital for further evaluation and found to have paronychia and possible osteomyelitis with abscess formation patient was admitted for further management family denies any medical condition other than Down syndrome her had a debridement of the wound done and that is growing MSSA. patient has LAMBERTO she has been on Vanc and Cefepime her sister is the main caregiver and she thinks that patient can handle a picc line. she has no reported fever or chills n o known abx allergies. Review of Systems Constitutional: Fever Cardiovascular: Chest Pain Gastrointestinal: Nausea Genitourinary: Dysuria Musculoskeletal: neck pain, hand pain (Left thumb pain) Allergies: Coded Allergies: codeine (Verified Allergy, Unknown, 10/05/21) VITALS REVIEW VITALS Vital Sign - Last 24 Hours 10/05/21 10/05/21 10/05/21 10/05/21 11:55 11:55 11:55 12:15 Temp 99.7 99.7 99.7 99.7 Pulse 92 92 92 92 Resp 16 16 16 16 B/P (MAP) 125/81 (96) 125/81 (96) Pulse Ox 97 97 97 O2 Delivery Room Air* Room Air* O2 Flow Rate 0 0 FiO2 10/05/21 10/05/21 10/05/21 10/05/21 13:19 14:06 15:12 16:42 Temp 99.7 99.7 98.9 Pulse 83 77 67 62 Resp 16 16 16 16 B/P (MAP) 105/64 (78) 125/66 (85) 115/61 (79) 116/72 (87) Pulse Ox 97 97 97 96 O2 Delivery Room Air* Room Air* Room Air* Room Air* O2 Flow Rate 0 0 0 0 FiO2 10/05/21 10/05/21 10/05/21 10/06/21 17:51 17:53 20:13 00:16 Temp 98.0 Pulse 69 Resp 18 B/P (MAP) 110/74 (86) Pulse Ox 95 O2 Delivery Room Air Room Air Room Air* Room Air O2 Flow Rate 0.00 0.00 0 0.00 FiO2 21 10/06/21 10/06/21 10/06/21 10/06/21 01:17 05:43 07:07 07:57 Temp 97.6 97.5 98.0 Pulse 65 67 59 Resp 16 17 19 B/P (MAP) 107/51 (69) 101/58 (72) 105/67 (80) Pulse Ox 95 98 92 O2 Delivery Room Air* Room Air* Room Air* Room Air O2 Flow Rate 0 0 0 0.00 FiO2 21 10/06/21 10/06/21 10/06/21 10/06/21 11:17 16:06 20:00 20:07 Temp 98.2 97.9 98.7 Pulse 70 74 76 Resp 18 19 18 B/P (MAP) 112/58 (76) 110/62 (78) 90/42 (58) Pulse Ox 93 93 96 O2 Delivery Room Air* Room Air* Room Air* Room Air O2 Flow Rate 0 0 0 0.00 FiO2 21 10/07/21 10/07/21 10/07/21 10/07/21 00:18 04:11 07:23 08:13 Temp 97.5 97.8 97.9 Pulse 76 64 55 Resp 18 17 18 B/P (MAP) 91/51 (64) 108/72 (84) 102/62 (75) Pulse Ox 92 99 94 O2 Delivery Room Air* Room Air* Room Air* Room Air O2 Flow Rate 0 0 0 0.00 FiO2 10/07/21 10/07/21 10/07/21 11:26 13:08 15:43 Temp 98.2 98.1 Pulse 62 65 Resp 19 14 B/P (MAP) 148/95 (112) 132/60 (84) Pulse Ox 98 94 O2 Delivery Room Air* Room Air Room Air* O2 Flow Rate 0 0.00 0 FiO2 21 Intake and Output 10/07/21 07:00 Intake Total 1350 ml Balance 1350 ml LABS LAB RESULTS Laboratory Tests Test 10/05/21 14:00 10/05/21 14:18 10/05/21 15:13 10/06/21 04:05 White Blood Count 11.2 10^3/uL (4.5-11.0) 8.6 10^3/uL (4.5-11.0) Red Blood Count 3.32 10^6/uL (4.00-5.20) 3.28 10^6/uL (4.00-5.20) Hemoglobin 11.1 g/dL (12.0-15.0) 11.0 g/dL (12.0-15.0) Hematocrit 36.3 % (36.0-46.0) 35.0 % (36.0-46.0) Mean Corpuscular Volume 109.3 fL (78-100) 106.7 fL (78-100) Mean Corpuscular Hemoglobin 33.4 pg (26-34) 33.5 pg (26-34) Mean Corpuscular Hemoglobin Concent 30.6 g/dL (33-36.5) 31.4 g/dL (33-36.5) Red Cell Distribution Width 17.7 % (11.5-14.5) 16.9 % (11.5-14.5) Platelet Count 307 10^3/uL (150-400) 291 10^3/uL (150-400) Mean Platelet Volume 12.4 fL (7.8-11.0) 12.3 fL (7.8-11.0) Neutrophils (%) (Auto) 63.2 % (41.0-85.0) 53.8 % (41.0-85.0) Lymphocytes (%) (Auto) 27.6 % (24.0-44.0) 37.0 % (24.0-44.0) Monocytes (%) (Auto) 5.0 % (5.0-12.0) 5.1 % (5.0-12.0) Neutrophils # (Auto) 7.1 10^3/uL (1.8-7.7) 4.6 10^3/uL (1.8-7.7) Lymphocytes # (Auto) 3.09 10^3/uL1 (1.0-4.8) 3.19 10^3/uL1 (1.0-4.8) Monocytes # (Auto) 0.6 10^3/uL (0.3-0.8) 0.4 10^3/uL (0.3-0.8) Absolute Immature Granulocyte (auto 0.13 10^3 u/L (0-2) 0.08 10^3 u/L (0-2) Absolute Eosinophils (auto) 0.3 10^3/uL (0.0-0.2) 0.3 10^3/uL (0.0-0.2) Immature Granulocytes % 1.20 % (0.00-0.50) 0.90 % (0.00-0.50) Eosinophils % 2.7 % (0.0-5.0) 2.9 % (0.0-5.0) Basophils % 0.3 % (0.0-0.2) 0.3 % (0.0-0.2) Basophils # 0.0 10^3/uL (0.0-0.1) 0.0 10^3/uL (0.0-0.1) Sodium Level 140 mmol/L (132-145) 141 mmol/L (132-145) Potassium Level 4.0 mmol/L (3.6-5.2) 3.7 mmol/L (3.6-5.2) Chloride Level 104.0 mmol/L (96-109) 105.0 mmol/L (96-109) Carbon Dioxide Level 25.6 mmol/L (20.0-32) 25.2 mmol/L (20.0-32) Glucose Level 143 mg/dL (70-110) 138 mg/dL (70-110) Blood Urea Nitrogen 13 mg/dL (7-18) 17 mg/dL (7-18) Creatinine 1.44 mg/dL (0.59-1.40) 1.49 mg/dL (0.59-1.40) Calcium Level 8.3 mg/dL (8.4-10.5) 7.9 mg/dL (8.4-10.5) Anion Gap 14.4 14.5 Estimated GFR () 48.3 (>/=60) 46.4 (>/=60) Est GFR (CKD-EPI)(Non-Afr [place]) 39.9 (>/=60) 38.4 (>/=60) BUN/Creatinine Ratio 9.0 11.0 Lactic Acid Level 1.6 mmol/L (0.5-1.9) Prothrombin Time 11.0 SEC (9.1-11.5) Prothrombin Time INR (Non-Therap) 1.1 Activated Partial Thromboplast Time 29.6 SEC (22.5-33.1) Thyroid Stimulating Hormone (TSH) 58.190 mIU/mL (0.358-3.740) Follicle Stimulating Hormone 13.5 mIU/mL (.) Luteinizing Hormone 8.4 mIU/mL (.) Serum HCG, Qualitative NEGATIVE (NEGATIVE) Test 10/07/21 04:28 White Blood Count 8.3 10^3/uL (4.5-11.0) Red Blood Count 3.22 10^6/uL (4.00-5.20) Hemoglobin 10.8 g/dL (12.0-15.0) Hematocrit 33.1 % (36.0-46.0) Mean Corpuscular Volume 102.8 fL (78-100) Mean Corpuscular Hemoglobin 33.5 pg (26-34) Mean Corpuscular Hemoglobin Concent 32.6 g/dL (33-36.5) Red Cell Distribution Width 16.7 % (11.5-14.5) Platelet Count 292 10^3/uL (150-400) Mean Platelet Volume 11.6 fL (7.8-11.0) Neutrophils (%) (Auto) 54.8 % (41.0-85.0) Lymphocytes (%) (Auto) 37.7 % (24.0-44.0) Monocytes (%) (Auto) 3.7 % (5.0-12.0) Neutrophils # (Auto) 4.5 10^3/uL (1.8-7.7) Lymphocytes # (Auto) 3.13 10^3/uL1 (1.0-4.8) Monocytes # (Auto) 0.3 10^3/uL (0.3-0.8) Absolute Immature Granulocyte (auto 0.21 10^3 u/L (0-2) Absolute Eosinophils (auto) 0.3 10^3/uL (0.0-0.2) Immature Granulocytes % 2.50 % (0.00-0.50) Eosinophils % 3.6 % (0.0-5.0) Basophils % 0.2 % (0.0-0.2) Basophils # 0.0 10^3/uL (0.0-0.1) Sodium Level 140 mmol/L (132-145) Potassium Level 4.3 mmol/L (3.6-5.2) Chloride Level 105.0 mmol/L (96-109) Carbon Dioxide Level 24.3 mmol/L (20.0-32) Glucose Level 132 mg/dL (70-110) Blood Urea Nitrogen 18 mg/dL (7-18) Creatinine 1.55 mg/dL (0.59-1.40) Calcium Level 8.0 mg/dL (8.4-10.5) Anion Gap 15.0 Estimated GFR () 44.4 (>/=60) Est GFR (CKD-EPI)(Non-Afr [place]) 36.7 (>/=60) BUN/Creatinine Ratio 11.0 VTE VTE Risk Total Score: 3 VTE Risk Score VTE Risk: Score 0-1 = Low Risk (Aggressive mobilization; early ambulation; no VTE prophylaxis required) Score 2: Moderate Risk (Intermittent/Pneumatic Compression Device OR Lovenox/Heparin/Coumadin) Score 3-4: High Risk (Intermittent/Pneumatic Compression Device AND Lovenox/Heparin/Coumadin) Score > or =5: Highest Risk (Intermittent/Pneumatic Compression Device AND Lovenox/Heparin/Coumadin) VTE VTE Present on Admission: No Currently receiving anticoagul: No VTE Risk Total Score: 3 Assessment/Plan Assessment/Plan Assessment/Plan 40-year-old female with previous history of Down syndrome presented with left thumb swollen and erythema IMPRESSION: Left thumb first digit osteomyelitis with abscess XR suggestive of soft tissue swelling of the thumb with osteolysis of the tuft of the distal phalanx of the thumb suspicious for osteomyelitis s/p Debridement. cultures growing MSSA. Down syndrome Obesity Early menopause LAMBERTO RECOMMENDATIONS: -stop Vanc and Cefepime -Insert picc line -start Cefazolin 2 gm iv q8 for 2 weeks. followed by Augmentin 875 po bid for 4 weeks. -Monitor weekly CBC CMP ESR CRP while on the treatment. -fup with the PCP Thanks for the consult Boaz Hoang MD Infectious Disease Service BOAZ HOANG MD Oct 07, 2021 16:42
--- NOTE | 2021-10-07 18:07 | PRM.PN ---
Subjective Subjective Date: Oct 07, 2021 Time: 18:05 Subjective Pain ok Afebrile Cultures = Staph Aureus with multiple sensitvities Will discuss with wound care tomorrow about surgical I&D VTE VTE Risk Total Score: 3 VTE Risk Score VTE Risk: Score 0-1 = Low Risk (Aggressive mobilization; early ambulation; no VTE prophylaxis required) Score 2: Moderate Risk (Intermittent/Pneumatic Compression Device OR Lovenox/Heparin/Coumadin) Score 3-4: High Risk (Intermittent/Pneumatic Compression Device AND Lovenox/Heparin/Coumadin) Score > or =5: Highest Risk (Intermittent/Pneumatic Compression Device AND Lovenox/Heparin/Coumadin) Review of Systems Constitutional: Fever Cardiovascular: Chest Pain Gastrointestinal: Nausea Genitourinary: Dysuria Musculoskeletal: neck pain, hand pain (Left thumb pain) Allergies: Coded Allergies: codeine (Verified Allergy, Unknown, 10/05/21) Objective Vitals and I/O Vital Sign - Last 24 Hours 10/06/21 10/06/21 10/07/21 10/07/21 20:00 20:07 00:18 04:11 Temp 98.7 97.5 97.8 Pulse 76 76 64 Resp 18 18 17 B/P (MAP) 90/42 (58) 91/51 (64) 108/72 (84) Pulse Ox 96 92 99 O2 Delivery Room Air* Room Air Room Air* Room Air* O2 Flow Rate 0 0.00 0 0 FiO2 10/07/21 10/07/21 10/07/21 10/07/21 07:23 08:13 11:26 13:08 Temp 97.9 98.2 Pulse 55 62 Resp 18 19 B/P (MAP) 102/62 (75) 148/95 (112) Pulse Ox 94 98 O2 Delivery Room Air* Room Air Room Air* Room Air O2 Flow Rate 0 0.00 0 0.00 FiO2 21 10/07/21 15:43 Temp 98.1 Pulse 65 Resp 14 B/P (MAP) 132/60 (84) Pulse Ox 94 O2 Delivery Room Air* O2 Flow Rate 0 FiO2 21 Intake and Output 10/07/21 07:00 Intake Total 1350 ml Balance 1350 ml General: Alert, No acute distress HEENT: Atraumatic Neck: Supple, No JVD Lungs: Clear to auscultation, Normal air movement Heart: Regular rate, Normal S1, Normal S2 Abdomen: Soft, No tenderness Extremities: No clubbing, No cyanosis Skin: Other (Left thumb Distal digit, discolored, drainage, tender.) Neuro: Sensation intact, Other (Patient has Down syndrome) Psych/Mental Status: Other (Down syndrome) All Results(Lab/Rad) Laboratory Tests Test 10/05/21 14:00 10/05/21 14:18 10/05/21 15:13 10/06/21 04:05 White Blood Count 11.2 10^3/uL 8.6 10^3/uL Red Blood Count 3.32 10^6/uL 3.28 10^6/uL Hemoglobin 11.1 g/dL 11.0 g/dL Hematocrit 36.3 % 35.0 % Mean Corpuscular Volume 109.3 fL 106.7 fL Mean Corpuscular Hemoglobin 33.4 pg 33.5 pg Mean Corpuscular Hemoglobin Concent 30.6 g/dL 31.4 g/dL Red Cell Distribution Width 17.7 % 16.9 % Platelet Count 307 10^3/uL 291 10^3/uL Mean Platelet Volume 12.4 fL 12.3 fL Neutrophils (%) (Auto) 63.2 % 53.8 % Lymphocytes (%) (Auto) 27.6 % 37.0 % Monocytes (%) (Auto) 5.0 % 5.1 % Neutrophils # (Auto) 7.1 10^3/uL 4.6 10^3/uL Lymphocytes # (Auto) 3.09 10^3/uL1 3.19 10^3/uL1 Monocytes # (Auto) 0.6 10^3/uL 0.4 10^3/uL Absolute Immature Granulocyte (auto 0.13 10^3 u/L 0.08 10^3 u/L Absolute Eosinophils (auto) 0.3 10^3/uL 0.3 10^3/uL Immature Granulocytes % 1.20 % 0.90 % Eosinophils % 2.7 % 2.9 % Basophils % 0.3 % 0.3 % Basophils # 0.0 10^3/uL 0.0 10^3/uL Sodium Level 140 mmol/L 141 mmol/L Potassium Level 4.0 mmol/L 3.7 mmol/L Chloride Level 104.0 mmol/L 105.0 mmol/L Carbon Dioxide Level 25.6 mmol/L 25.2 mmol/L Glucose Level 143 mg/dL 138 mg/dL Blood Urea Nitrogen 13 mg/dL 17 mg/dL Creatinine 1.44 mg/dL 1.49 mg/dL Calcium Level 8.3 mg/dL 7.9 mg/dL Anion Gap 14.4 14.5 Estimated GFR () 48.3 46.4 Est GFR (CKD-EPI)(Non-Afr [place]) 39.9 38.4 BUN/Creatinine Ratio 9.0 11.0 Lactic Acid Level 1.6 mmol/L Prothrombin Time 11.0 SEC Prothrombin Time INR (Non-Therap) 1.1 Activated Partial Thromboplast Time 29.6 SEC Thyroid Stimulating Hormone (TSH) 58.190 mIU/mL Serum HCG, Qualitative NEGATIVE Current Medications Medications (Trade) Dose Ordered Sig/Roxanne Route PRN Reason Start Time Stop Time Status Last Admin Dose Admin Morphine Sulfate (Morphine Sulfate) 4 mg STAT STAT IV 10/05/21 13:53 10/05/21 13:54 DC 10/05/21 14:20 Vancomycin HCl 1 gm/Sodium Chloride 250 ml @ 175 mls/hr STAT STAT IV 10/05/21 13:53 10/05/21 15:18 DC 10/05/21 14:54 Piperacillin Sod/ Tazobactam Sod 3.375 gm/Sodium Chloride 100 ml @ 200 mls/hr STAT STAT IV 10/05/21 13:53 10/05/21 14:22 DC 10/05/21 14:20 Morphine Sulfate (Morphine Sulfate) 2 mg STK-MED ONCE .ROUTE 10/05/21 14:02 10/05/21 14:03 DC Sodium Chloride 100 ml @ ud STK-MED ONCE IV 10/05/21 14:03 10/05/21 14:03 DC Sodium Chloride 250 ml @ ud STK-MED ONCE .ROUTE 10/05/21 14:36 10/05/21 14:37 DC Vancomycin HCl 1 ml @ ud STK-MED ONCE .ROUTE 10/05/21 14:37 10/05/21 14:37 DC Piperacillin Sod/ Tazobactam Sod 3.375 gm/Sodium Chloride 100 ml @ 200 mls/hr Q6H IV 10/05/21 18:30 10/05/21 21:36 DC Morphine Sulfate (Morphine Sulfate) 4 mg Q6HR PRN IV PAIN 7 - 10 10/05/21 18:30 11/04/21 18:29 Acetaminophen (Tylenol) 650 mg Q6H PRN PO PAIN 1 - 3 10/05/21 18:30 11/04/21 18:29 10/06/21 02:53 Diphtheria/ Tetanus/Acell Pertussis (Boostrix) 0.5 ml ONCE ONCE IM 10/05/21 18:30 10/05/21 19:54 DC 10/05/21 22:43 Oxycodone HCl (Oxy-Ir) 5 mg Q6HR PRN PO pain 4-6 10/05/21 20:30 11/04/21 20:29 10/06/21 11:33 Sodium Chloride 100 ml @ ud STK-MED ONCE IV 10/05/21 21:34 10/05/21 21:34 DC Sodium Chloride 250 ml @ ud STK-MED ONCE .ROUTE 10/05/21 21:35 10/05/21 21:35 DC Piperacillin Sod/ Tazobactam Sod 3.375 gm/Sodium Chloride 100 ml @ 200 mls/hr Q6H IV 10/05/21 20:30 11/04/21 20:29 10/06/21 08:30 Diphtheria/ Tetanus/Acell Pertussis (Boostrix) 0.5 ml STK-MED ONCE IM 10/05/21 21:41 10/05/21 21:41 DC Sodium Chloride 100 ml @ ud STK-MED ONCE IV 10/06/21 02:34 10/06/21 02:35 DC Sodium Chloride 250 ml @ ud STK-MED ONCE .ROUTE 10/06/21 09:51 10/06/21 09:51 DC Course Sepsis Screening Results: Posi: NEGATIVE Sepsis Qualifier/Stage: NO DEFINITE RISK Duration or Total Time Spent w: 45 min Vitals & review Data Vital Sign - Last 24 Hours 10/06/21 10/06/21 10/07/21 10/07/21 20:00 20:07 00:18 04:11 Temp 98.7 97.5 97.8 Pulse 76 76 64 Resp 18 18 17 B/P (MAP) 90/42 (58) 91/51 (64) 108/72 (84) Pulse Ox 96 92 99 O2 Delivery Room Air* Room Air Room Air* Room Air* O2 Flow Rate 0 0.00 0 0 FiO2 21 21 21 7/27/22 7/27/22 7/27/22 7/27/22 07:23 08:13 11:26 13:08 Temp 97.9 98.2 Pulse 55 62 Resp 18 19 B/P (MAP) 102/62 (75) 148/95 (112) Pulse Ox 94 98 O2 Delivery Room Air* Room Air Room Air* Room Air O2 Flow Rate 0 0.00 0 0.00 FiO2 21 21 10/07/21 15:43 Temp 98.1 Pulse 65 Resp 14 B/P (MAP) 132/60 (84) Pulse Ox 94 O2 Delivery Room Air* O2 Flow Rate 0 FiO2 21 Intake and Output 10/07/21 07:00 Intake Total 1350 ml Balance 1350 ml Laboratory Tests Test 10/06/21 04:05 10/07/21 04:28 White Blood Count 8.6 10^3/uL 8.3 10^3/uL Red Blood Count 3.28 10^6/uL 3.22 10^6/uL Hemoglobin 11.0 g/dL 10.8 g/dL Hematocrit 35.0 % 33.1 % Mean Corpuscular Volume 106.7 fL 102.8 fL Mean Corpuscular Hemoglobin 33.5 pg 33.5 pg Mean Corpuscular Hemoglobin Concent 31.4 g/dL 32.6 g/dL Red Cell Distribution Width 16.9 % 16.7 % Platelet Count 291 10^3/uL 292 10^3/uL Mean Platelet Volume 12.3 fL 11.6 fL Neutrophils (%) (Auto) 53.8 % 54.8 % Lymphocytes (%) (Auto) 37.0 % 37.7 % Monocytes (%) (Auto) 5.1 % 3.7 % Neutrophils # (Auto) 4.6 10^3/uL 4.5 10^3/uL Lymphocytes # (Auto) 3.19 10^3/uL1 3.13 10^3/uL1 Monocytes # (Auto) 0.4 10^3/uL 0.3 10^3/uL Absolute Immature Granulocyte (auto 0.08 10^3 u/L 0.21 10^3 u/L Absolute Eosinophils (auto) 0.3 10^3/uL 0.3 10^3/uL Immature Granulocytes % 0.90 % 2.50 % Eosinophils % 2.9 % 3.6 % Basophils % 0.3 % 0.2 % Basophils # 0.0 10^3/uL 0.0 10^3/uL Sodium Level 141 mmol/L 140 mmol/L Potassium Level 3.7 mmol/L 4.3 mmol/L Chloride Level 105.0 mmol/L 105.0 mmol/L Carbon Dioxide Level 25.2 mmol/L 24.3 mmol/L Glucose Level 138 mg/dL 132 mg/dL Blood Urea Nitrogen 17 mg/dL 18 mg/dL Creatinine 1.49 mg/dL 1.55 mg/dL Calcium Level 7.9 mg/dL 8.0 mg/dL Anion Gap 14.5 15.0 Estimated GFR () 46.4 44.4 Est GFR (CKD-EPI)(Non-Afr Swedish) 38.4 36.7 BUN/Creatinine Ratio 11.0 11.0 Thyroid Stimulating Hormone (TSH) 58.190 mIU/mL Follicle Stimulating Hormone 13.5 mIU/mL Luteinizing Hormone 8.4 mIU/mL Serum HCG, Qualitative NEGATIVE Current Medications Medications (Trade) Dose Ordered Sig/Roxanne PRN Reason Start Time Stop Time Status Last Admin Acetaminophen (Tylenol) 650 mg Q6H PRN PAIN 1 - 3 10/05/21 18:30 11/04/21 18:29 10/07/21 01:31 Cefepime HCl 1 gm/ Sodium Chloride 100 ml @ 100 mls/hr Q8HR 10/06/21 14:00 11/05/21 13:59 10/07/21 13:40 Levothyroxine Sodium (Levothyroxine Sodium) 25 mcg ACB 10/07/21 06:30 11/06/21 06:29 10/07/21 05:56 Lidocaine (Xylocaine) 1 gm PRN PRN APPLY WITH WOUND CARE 10/06/21 15:30 11/05/21 15:29 Morphine Sulfate (Morphine Sulfate) 4 mg Q6HR PRN PAIN 7 - 10 10/05/21 18:30 11/04/21 18:29 10/07/21 09:40 Oxycodone HCl (Oxy-Ir) 5 mg Q6HR PRN pain 4-6 10/05/21 20:30 11/04/21 20:29 10/07/21 13:39 LEVEL 1 SEPSIS INFECTION CRITE: ABX Therapy, Recent Invasive Procedure LEVEL 2-SIRS (LIST ALL THAT AP: None/Not assessed Cardiovascular Evidence: Not Assessed or None Hematologic Evidence: None/Not assessed Hepatic Evidence: None/Not assessed Metabolic Evidence: None/Not assessed Neurological Evidence: None/Not assessed Respiratory Evidence: None/Not assessed O2 Sat by Pulse Oximetry: 94 Oxygen Flow Rate: 0.00 Assessment/Plan Assessment/Plan Assessment/Plan 40-year-old female with previous history of Down syndrome presented with left thumb swollen and erythema IMPRESSION: Left thumb first digit osteomyelitis with abscess XR suggestive of soft tissue swelling of the thumb with osteolysis of the tuft of the distal phalanx of the thumb suspicious for osteomyelitis s/p Debridement. cultures growing MSSA. Down syndrome Obesity Early menopause LAMBERTO RECOMMENDATIONS: -stop Vanc and Cefepime -Insert picc line -start Cefazolin 2 gm iv q8 for 2 weeks. followed by Augmentin 875 po bid for 4 weeks. -Monitor weekly CBC CMP ESR CRP while on the treatment. -fup with the PCP Thanks for the consult Boaz Poe MD Infectious Disease Service MARLYN COX MD Oct 07, 2021 18:07
[2021-10-07 20:29] VITALS: BP 122/81
--- NOTE | 2021-10-07 22:43 | NUR ---
CRITICAL VANC TROUGH LEVEL OF 29. 2100 DOSE OF VANC HELD AND DR LYON NOTIFIED
[2021-10-08] VITALS (10 sets, daily range): BP systolic 105–150; BP diastolic 62–83
[2021-10-08] MEDS: LACTATED RINGERS 1,000 ML IV SCH ×2 (01:26→21:06)
[2021-10-08 04:43] LABS: BASOPHIL % 0.3 % (0.0-0.2); CARBON DIOXIDE 26.4 mmol/L (20.0-32); EOSINOPHIL # 0.3 10^3/uL (0.0-0.2); EOSINOPHIL % 4.6 % (0.0-5.0); LYMPHOCYTES # 1.68 10^3/uL1 (1.0-4.8); MONOCYTES # 0.3 10^3/uL (0.3-0.8); MONOCYTES % 4.2 % (5.0-12.0); NEUTROPHIL # 4.4 10^3/uL (1.8-7.7); NEUTROPHILS % 65.9 % (41.0-85.0); PLATELET COUNT 279 10^3/uL (150-400); RED CELL DISTRIBUTION WIDTH 16.6 % (11.5-14.5)
[2021-10-08] MEDS: LEVOTHYROXINE SODIUM PO SCH (06:12)
[2021-10-08] MEDS: MAXIPIME 1 GM in NS 100ML 100 ML IV SCH (06:13)
[2021-10-08] MEDS ORDERED: ANCEF 2 GM in NS 100ML 100 ML IV SCH (09:00)
[2021-10-08] MEDS: ANCEF 2 GM/D5W 50ML 50 ML IV SCH ×2 (09:19→17:16)
--- NOTE | 2021-10-08 10:05 | NUR ---
PT OFF UNIT VIA BED ACCOMPANIED BY OR STAFF AND FAMILY
[2021-10-08] MEDS ORDERED: SODIUM CHLORIDE IRR BOTTLE IR ONE ×2 (10:28→12:05)
--- NOTE | 2021-10-08 11:10 | NUR ---
PICC Line update Upon visiting with Dr. Titus regarding PICC Line consult, Dr. Titus stated "patient is no longer a candidate for a PICC Line because patient will discharge with a PO ABX therapy regimen". Ovidio Mandujano RN Charge Nurse notified and stated that the hospitalist is the one wanting the PICC Line for IV ABX therapy for 6 wks S/P discharge-will continue to monitor.
[2021-10-08] MEDS ORDERED: DIPRIVAN IV ONE (11:22)
[2021-10-08] MEDS ORDERED: DECADRON ONE (11:22)
[2021-10-08] MEDS ORDERED: XYLOCAINE 2% 5ML VIAL ONE (11:22)
[2021-10-08] MEDS ORDERED: ZOFRAN ONE (11:22)
[2021-10-08] MEDS ORDERED: SUBLIMAZE ONE (11:23)
[2021-10-08] MEDS ORDERED: LIDOCAINE 1% VIAL ONE (11:33)
[2021-10-08] MEDS ORDERED: LACTATED RINGERS 1,000 ML ONE (12:05)
--- NOTE | 2021-10-08 12:07 | PRM.PN ---
Subjective Subjective Date: Oct 08, 2021 Time: 09:00 Subjective Seen byNo new complaints. Patient was seen by infectious disease, appreciate input and recommendations. Orthopedics come, for debridement today. Review of Systems Musculoskeletal: neck pain, hand pain (Left thumb pain) Other Review of other 14 systems negative except was mentioned above. Allergies: Coded Allergies: codeine (Verified Allergy, Unknown, 10/05/21) Assessment/Plan Assessment/Plan Assessment/Plan Recommendations as per infectious disease: Reviewed and agree 40-year-old female with previous history of Down syndrome presented with left thumb swollen and erythema IMPRESSION: Left thumb first digit osteomyelitis with abscess XR suggestive of soft tissue swelling of the thumb with osteolysis of the tuft of the distal phalanx of the thumb suspicious for osteomyelitis s/p Debridement. cultures growing MSSA. Down syndrome Obesity Early menopause LAMBERTO RECOMMENDATIONS: -stop Vanc and Cefepime -Insert picc line -start Cefazolin 2 gm iv q8 for 2 weeks. followed by Augmentin 875 po bid for 4 weeks. -Monitor weekly CBC CMP ESR CRP while on the treatment. -fup with the PCP Patient will go to the OR today for debridement. Possible discharge in a.m. on IV antibiotic Cefazolin 2 g every 8 hours for 2 weeks followed by Augmentin 875 mg p.o. twice daily for 4 weeks As per infectious disease consult Problems: (1) Osteomyelitis of finger of left hand Status: Acute ICD Code: M86.9 - Osteomyelitis, unspecified SNOMED: [id number], [id number] (2) Abscess around left thumbnail Status: Acute ICD Code: L03.012 - Cellulitis of left finger SNOMED: [id number], [id number] (3) Down syndrome ICD Code: Q90.9 - Down syndrome, unspecified SNOMED: [id number], [id number] SILVANA CARRILLO MD Oct 08, 2021 12:07
--- NOTE | 2021-10-08 12:58 | OPH ---
DATE OF SURGERY: 10/08/2021 DICTATOR NAME: George Titus MD PREOPERATIVE DIAGNOSIS: Osteomyelitis of the distal phalanx of the left thumb. POSTOPERATIVE DIAGNOSIS: Osteomyelitis of the distal phalanx of the left thumb. OPERATIVE PROCEDURE: Incision and debridement of skin, subcutaneous tissue and bone of the left thumb distal phalanx. SURGEON: George Titus MD. ANESTHESIA: LMA. TOURNIQUET TIME: 39 minutes at 250 mmHg. DESCRIPTION OF INDICATIONS: The patient is a 40-year-old female with Down syndrome. About a week prior to admission to our hospital, she was having swelling and redness about the thumb and was treated for herpetic mahsa with acyclovir and Tylenol. She was seen in our Emergency Room, noted to have diffuse swelling and redness and pain about the thumb. The Emergency Room physician performed an I and D of the distal tip of the thumb. Cultures were taken. It eventually grew out Staph aureus with multiple sensitivities. The patient has been on vancomycin IV. The wound care team was unable to do an affective wound debridement because of the patient's inability to tolerate bedside wound debridements and therefore, she was taken to the operating room for formal I and D. The initial game plan was to admit the patient to the hospital for several days and let the skin declare itself before we proceeded with surgical intervention formally. DESCRIPTION OF PROCEDURE: The patient placed on the operating table in the supine position. LMA anesthetic was induced without difficulty. The patient had a well-padded tourniquet placed around the left upper arm. Left upper extremity was then sterilely prepped and draped. The arm was elevated for 2 minutes and the tourniquet was inflated to 250. The patient had a circular type wound about the palmar aspect of her thumb distally that was approximately 1 cm x 1.5 cm extending down to the bone. The nail was partially removed at this point. We debrided the skin about the volar aspect of the thumb back to healthy tissue. The patient's fingernail was removed. There was extensive involvement of the nail bed and it was likewise excised. We used a rongeur and resected approximately half of the distal phalanx to get back to healthy-appearing bone. Once the wounds were all felt to be clean, the wounds were irrigated with 2 liters of saline. The patient had medial and lateral flaps that were pulled distally and sewed without tension over the dorsal aspect loosely with 3-0 Ethilon. The volar portion of the wound was partially left open to allow drainage. The other skin edges were loosely closed. There did not appear to be any tension on the repair. The wounds again were reirrigated and the wound was dressed with Adaptic, 4 x 4s, cast padding and Xavier wrap. Prior to dressing the wound, the thumb was injected with 1% lidocaine plain about the metacarpal head. The patient had the tourniquet released and was sent to recovery in stable condition. George Titus MD DR: ANTOINE/KENA TID: [id number] RECEIPT: [id number]
--- NOTE | 2021-10-08 13:10 | NUR ---
PT ARRIVED ON UNIT ACCOMPANIED BY STAFF VIA BED
--- NOTE | 2021-10-08 13:30 | NUR ---
REPORT TO [facility], RELINQUISH CARE AT THIS TIME
[2021-10-08] MEDS: MORPHINE SULFATE IV PRN (14:11)
--- NOTE | 2021-10-08 14:40 | NUR ---
Report received and care assumed at 1400; pain rating of 10 on by proxy scale; iv morphine 4mg administered per eMAR; PT placed on 2L O2 via nasal cannula following administration due to de-SAT to 81%; O2 SAT increased to 95% following administration; Will continue to monitor for respiratory depression.
[2021-10-09] MEDS: ANCEF 2 GM/D5W 50ML 50 ML IV SCH ×3 (01:23→16:59)
[2021-10-09] MEDS: LEVOTHYROXINE SODIUM PO SCH (05:48)
[2021-10-09 06:08] LABS: BASOPHIL % 0.3 % (0.0-0.2); EOSINOPHIL % 0.3 % (0.0-5.0); LYMPHOCYTES # 1.06 10^3/uL1 (1.0-4.8); LYMPHOCYTES % 13.6 % (24.0-44.0); MEAN CORP HGB 33.1 pg (26-34); MONOCYTES # 0.3 10^3/uL (0.3-0.8); MONOCYTES % 3.5 % (5.0-12.0); NEUTROPHIL # 6.5 10^3/uL (1.8-7.7); NEUTROPHILS % 82.3 % (41.0-85.0); PLATELET COUNT 257 10^3/uL (150-400); RED CELL DISTRIBUTION WIDTH 16.7 % (11.5-14.5)
[2021-10-09 06:24] LABS: CARBON DIOXIDE 29.2 mmol/L (20.0-32)
[2021-10-09] MEDS: TYLENOL PO PRN (06:52)
[2021-10-09 09:14] VITALS: BP 112/69
[2021-10-09] MEDS ORDERED: NS 250ML 250 ML IV ONE (09:30)
[2021-10-09] MEDS: NS 1000ML 1,000 ML IV SCH (10:36)
--- NOTE | 2021-10-09 11:40 | PRM.PN ---
Subjective Subjective Date: Oct 09, 2021 Time: 09:00 Subjective Patient sitting up in bed , does not appear to be in any distress. Patient underwent: Incision and debridement of skin, subcutaneous tissue and bone of the left thumb distal phalanx. Creatinine today went up to 1.72. Discussed with patient's sister, no history of chronic kidney disease as per her knowledge. We will keep the patient in extra day for more IV fluids and to monitor her kidney function. Review of Systems Musculoskeletal: neck pain, hand pain (Left thumb pain/Postoperative) Allergies: Coded Allergies: codeine (Verified Allergy, Unknown, 10/05/21) Objective Vitals and I/O Vital Sign - Last 24 Hours 10/08/21 10/08/21 10/08/21 10/08/21 11:40 12:32 12:35 12:45 Temp 97.6 97.3 Pulse 92 89 84 Resp 14 16 16 B/P (MAP) 114/79 (91) 136/83 (100) 132/62 (85) Pulse Ox 96 100 98 O2 Delivery Non-Rebreather Non-Rebreather Room Air O2 Flow Rate 15.00 15.00 10/08/21 10/08/21 10/08/21 10/08/21 12:55 13:05 14:38 17:48 Temp 97.8 98.7 Pulse 82 68 69 Resp 16 16 19 B/P (MAP) 121/69 (86) 118/71 (87) 150/68 (95) Pulse Ox 97 96 97 O2 Delivery Room Air Room Air Room Air Room Air* O2 Flow Rate 0 FiO2 21 10/08/21 10/08/21 10/08/21 10/09/21 19:16 19:22 23:12 00:29 Temp 98.2 Pulse 79 79 76 Resp 19 19 18 B/P (MAP) 116/71 (86) Pulse Ox 96 96 98 O2 Delivery Room Air Room Air* Nasal Cannula* Room Air* O2 Flow Rate 0.00 0 2 0 FiO2 10/09/21 10/09/21 09:14 10:40 Temp 98.3 Pulse 74 Resp 18 B/P (MAP) 112/69 (83) Pulse Ox 92 O2 Delivery Room Air* Room Air* O2 Flow Rate 0 0 FiO2 Intake and Output 10/09/21 07:00 Intake Total 2060 ml Balance 2060 ml General: Alert, No acute distress HEENT: Atraumatic Neck: Supple, No JVD Lungs: Clear to auscultation, Normal air movement Heart: Regular rate, Normal S1, Normal S2 Abdomen: Soft, No tenderness Extremities: No clubbing, No cyanosis Skin: Other (Dressing applied to left thumb.) Neuro: Sensation intact, Other (Patient has Down syndrome) Psych/Mental Status: Other (Down syndrome) All Results(Lab/Rad) Laboratory Tests Test 10/05/21 14:00 10/05/21 14:18 10/05/21 15:13 10/06/21 04:05 White Blood Count 11.2 10^3/uL 8.6 10^3/uL Red Blood Count 3.32 10^6/uL 3.28 10^6/uL Hemoglobin 11.1 g/dL 11.0 g/dL Hematocrit 36.3 % 35.0 % Mean Corpuscular Volume 109.3 fL 106.7 fL Mean Corpuscular Hemoglobin 33.4 pg 33.5 pg Mean Corpuscular Hemoglobin Concent 30.6 g/dL 31.4 g/dL Red Cell Distribution Width 17.7 % 16.9 % Platelet Count 307 10^3/uL 291 10^3/uL Mean Platelet Volume 12.4 fL 12.3 fL Neutrophils (%) (Auto) 63.2 % 53.8 % Lymphocytes (%) (Auto) 27.6 % 37.0 % Monocytes (%) (Auto) 5.0 % 5.1 % Neutrophils # (Auto) 7.1 10^3/uL 4.6 10^3/uL Lymphocytes # (Auto) 3.09 10^3/uL1 3.19 10^3/uL1 Monocytes # (Auto) 0.6 10^3/uL 0.4 10^3/uL Absolute Immature Granulocyte (auto 0.13 10^3 u/L 0.08 10^3 u/L Absolute Eosinophils (auto) 0.3 10^3/uL 0.3 10^3/uL Immature Granulocytes % 1.20 % 0.90 % Eosinophils % 2.7 % 2.9 % Basophils % 0.3 % 0.3 % Basophils # 0.0 10^3/uL 0.0 10^3/uL Sodium Level 140 mmol/L 141 mmol/L Potassium Level 4.0 mmol/L 3.7 mmol/L Chloride Level 104.0 mmol/L 105.0 mmol/L Carbon Dioxide Level 25.6 mmol/L 25.2 mmol/L Glucose Level 143 mg/dL 138 mg/dL Blood Urea Nitrogen 13 mg/dL 17 mg/dL Creatinine 1.44 mg/dL 1.49 mg/dL Calcium Level 8.3 mg/dL 7.9 mg/dL Anion Gap 14.4 14.5 Estimated GFR () 48.3 46.4 Est GFR (CKD-EPI)(Non-Afr Rwandan) 39.9 38.4 BUN/Creatinine Ratio 9.0 11.0 Lactic Acid Level 1.6 mmol/L Prothrombin Time 11.0 SEC Prothrombin Time INR (Non-Therap) 1.1 Activated Partial Thromboplast Time 29.6 SEC Thyroid Stimulating Hormone (TSH) 58.190 mIU/mL Serum HCG, Qualitative NEGATIVE Current Medications Medications (Trade) Dose Ordered Sig/Roxanne Route PRN Reason Start Time Stop Time Status Last Admin Dose Admin Morphine Sulfate (Morphine Sulfate) 4 mg STAT STAT IV 10/05/21 13:53 10/05/21 13:54 DC 10/05/21 14:20 Vancomycin HCl 1 gm/Sodium Chloride 250 ml @ 175 mls/hr STAT STAT IV 10/05/21 13:53 10/05/21 15:18 DC 10/05/21 14:54 Piperacillin Sod/ Tazobactam Sod 3.375 gm/Sodium Chloride 100 ml @ 200 mls/hr STAT STAT IV 10/05/21 13:53 10/05/21 14:22 DC 10/05/21 14:20 Morphine Sulfate (Morphine Sulfate) 2 mg STK-MED ONCE .ROUTE 10/05/21 14:02 10/05/21 14:03 DC Sodium Chloride 100 ml @ ud STK-MED ONCE IV 10/05/21 14:03 10/05/21 14:03 DC Sodium Chloride 250 ml @ ud STK-MED ONCE .ROUTE 10/05/21 14:36 10/05/21 14:37 DC Vancomycin HCl 1 ml @ ud STK-MED ONCE .ROUTE 10/05/21 14:37 10/05/21 14:37 DC Piperacillin Sod/ Tazobactam Sod 3.375 gm/Sodium Chloride 100 ml @ 200 mls/hr Q6H IV 10/05/21 18:30 10/05/21 21:36 DC Morphine Sulfate (Morphine Sulfate) 4 mg Q6HR PRN IV PAIN 7 - 10 10/05/21 18:30 11/04/21 18:29 Acetaminophen (Tylenol) 650 mg Q6H PRN PO PAIN 1 - 3 10/05/21 18:30 11/04/21 18:29 10/06/21 02:53 Diphtheria/ Tetanus/Acell Pertussis (Boostrix) 0.5 ml ONCE ONCE IM 10/05/21 18:30 10/05/21 19:54 DC 10/05/21 22:43 Oxycodone HCl (Oxy-Ir) 5 mg Q6HR PRN PO pain 4-6 10/05/21 20:30 11/04/21 20:29 10/06/21 11:33 Sodium Chloride 100 ml @ ud STK-MED ONCE IV 10/05/21 21:34 10/05/21 21:34 DC Sodium Chloride 250 ml @ ud STK-MED ONCE .ROUTE 10/05/21 21:35 10/05/21 21:35 DC Piperacillin Sod/ Tazobactam Sod 3.375 gm/Sodium Chloride 100 ml @ 200 mls/hr Q6H IV 10/05/21 20:30 11/04/21 20:29 10/06/21 08:30 Diphtheria/ Tetanus/Acell Pertussis (Boostrix) 0.5 ml STK-MED ONCE IM 10/05/21 21:41 10/05/21 21:41 DC Sodium Chloride 100 ml @ ud STK-MED ONCE IV 10/06/21 02:34 10/06/21 02:35 DC Sodium Chloride 250 ml @ ud STK-MED ONCE .ROUTE 10/06/21 09:51 10/06/21 09:51 DC Assessment/Plan Assessment/Plan Assessment/Plan Recommendations as per infectious disease: Reviewed and agree 40-year-old female with previous history of Down syndrome presented with left thumb swollen and erythema IMPRESSION: Left thumb first digit osteomyelitis with abscess XR suggestive of soft tissue swelling of the thumb with osteolysis of the tuft of the distal phalanx of the thumb suspicious for osteomyelitis s/p Debridement. cultures growing MSSA. Down syndrome Obesity 10/09/2021 Patient sitting up in bed , does not appear to be in any distress. Patient underwent: Incision and debridement of skin, subcutaneous tissue and bone of the left thumb distal phalanx. Continue IV antibiotic. Creatinine today went up to 1.72. Discussed with patient's sister, no history of chronic kidney disease as per her knowledge. We will keep the patient in extra day for more IV fluids and to monitor her kidney function. Possible discharge in a.m.If stable with home health to continue IV antibiotic for 2 weeks followed by 4 weeks of oral antibiotic. Case discussed with patient's sister Problems: (1) Osteomyelitis of finger of left hand Status: Acute ICD Code: M86.9 - Osteomyelitis, unspecified SNOMED: [id number], [id number] (2) Down syndrome ICD Code: Q90.9 - Down syndrome, unspecified SNOMED: 93956565, 314083307 (3) Acute kidney injury ICD Code: N17.9 - Acute kidney failure, unspecified SNOMED: 7744395, 37261253 SILVANA CARRILLO MD Oct 09, 2021 11:40
[2021-10-09] MEDS: OXY-IR PO PRN (11:53)
--- NOTE | 2021-10-09 12:26 | NUR ---
DISCHARGE PLAN KAILASH INFORMED DURING ID DAILY MEETING THAT PATIENT'S CR INCREASED AND DR PINA WOULD POSSIBLE DISCHARGE TOMORROW ON HOME HEALTH AND IV ABX WITH HOME HEALTH. KAILASH FAXED IV ABX ORDER TO [facility] IV ABX@[phone]. FAX CONFIRMATION CONFIRMED COMPLETE. KAILASH CONTACTED [facility] IV ABX AND SPOKE WITH OCTAVIO. PER OCTAVIO - PATIENT IS MCR A& B WITH [facility] AND THEY ARE UNABLE TO TAKE PATIENT'S INSURANCE. KAILASH FAXED IV ABX ORDER TO [facility] IV SPECIALTY@[phone]. FAX CONFIRMATION CONFIRMED COMPLETE. KAILASH CONTACTED [facility] SPECIALTY IV AND SPOKE WITH SP AND HE CONFIRMED THAT HE HAD RECEIVED IV ABX ORDER. SP @[facility] WILL CALL CM BACK AFTER ORDER COMPLETED TO SEE IF ABX CAN BE ARRANGED TO BE DELIVERED OVER THE WEEKEND.
[2021-10-09 16:14] VITALS: BP 114/72
--- NOTE | 2021-10-09 17:22 | NUR ---
DISCHARGE PLAN- [facility] OUTPATIENT THERAPY - 9AM DAILY AFTER DISCHARGE CM RECEIVED CALL FROM [email or web address] AND INFORMED THAT THEY WERE UNABLE TO PROVIDE PATIENT WITH IV ABX DUE TO PATIENT WITH [place] [facility]. CM FAXED CLINICALS TO [facility] [place] AND SPOKE WITH SHAYY ABOUT POSSIBILITY OF PATIENT GOING THERE FOR IV ABX FOR 2 WEEKS AND THAT PATIENT'S MOTHER WHO ALSO HAS DOWNS WANTING TO STAY WITH PATIENT DUE TO THEY HAVE SEPARATION ANXIETY PER PATIENT'S SISTER. KAILASH INFORMED PER SHAYY THAT THEY COULD ACCEPT THE PATIENT AND CM SPOKE WITH PATIENT'S SISTER AL AND INFORMED HER OF HER OPTIONS AND THAT PATIENT COULD NOT GET IV ABX THERAPY FOR HOME HEALTH DUE TO [place] [facility] AND UNABLE TO ABX PROVIDED FOR HOME HEALTH TO TEACH FAMILY. PATIENT WOULD EITHER HAVE TO FOLLOW UP OUTPATIENT FOR IV ABX 3X DAILY OR AFTER CM SPOKE WITH SHAYY @[facility] [place] THAT PATIENT'S MOTHER COULD STAY WITH PATIENT. KAILASH GAVE SHAYY PATIENT'S SISTER'S PHONE NUMBER TO CONSULT AND ANSWER ALL QUESTIONS AFTER AL SAID THAT WAS A POSSIBILITY DUE TO THEY LIVE IN [place]. KAILASH RECEIVED PHONE CALL FROM SHAYY AND INFORMED@THAT TIME THAT FAMILY WAS WANTING ANOTHER PERSON TO BE ABLE TO STAY WITH PATIENT AND MOTHER DUE TO PATIENT'S MOTHER INCONTINENT AND ALSO NEEDING ASSISTANCE. PATIENT'S MOTHER COULD STAY 24/7 - BUT FAMILY COULD COME AND GO THROUGHOUT THE DAY NECESSARY. SHAYY INFORMED CM THAT AL WAS GOING TO GO DISCUSS AND LOOK @THE FACILITY AND WOULD LET HER KNOW. KAILASH CONTACTED DR PINA AND INFORMED OF PATIENT'S OPTIONS. DR PINA CONSULTED WITH ID AND INFORMED CM THAT HE SPOKE WITH INF DOC AND THEY COULD CHANGE IV ABX TO Q24 HOURS AND USE HIS SECOND CHOICE OF DRUG IF FAMILY CONTINUES TO REQUEST TO F/U OUTPATIENT. KAILASH THEN RECEIVED A VISIT FROM AL AND HER SPOUSE TO FURTHER DISCUSS OPTIONS AND INFORMED@THAT TIME THAT THEY HAD MADE THE DECISION TO COME [facility] OUTPATIENT 3X DAILY AND WHERE WONDERING WHAT THE SCHEDULE WOULD BE. KAILASH SPOKE WITH JAGDISH LARSON IN THE OR AND IV ABX WOULD BE ORDERED@9AM DAILY. KAILASH INFORMED AL OF F/U APPT WITH DR CUMMINGS ON OCTOBER 14, 2021@1020 AND DAILY IV ABX AFTER DISCHARGE WOULD BE@9AM AND THAT IS THE PLAN THAT THEY WOULD LIKE TO GO WITH. KAILASH CONTACTED ANNIE ALVAREZ LEATHER GRADER NURSE AND INFORMED OF THE PLAN. CM CONTACTED DR SILVANA LEIJA AND INFORMED HIM THAT WHEN PATIENT ABLE TO BE DISCHARGED THAT PATIENT WOULD F/U OUTPATIENT FOR IV ABX THERAPY@9AM DAILY ON MED SURG AND 9 AM M-F IN DAY SURGERY EXPLAINED TO FAMILY. DR PINA AGREEABLE WITH DISCHARGE PLAN AND ANNIE ALVAREZ, LEATHER GRADER NURSE INFORMED THAT WHEN PATIENT DISCHARGED TO LET PHARMACY KNOW SO THAT THEY COULD HAVE PATIENT ABX AVAILABLE THE NEXT DAY@9AM.
[2021-10-09 21:31] VITALS: BP 136/84
[2021-10-09] MEDS ORDERED: GENASYME ONE (23:56)
[2021-10-10] MEDS ORDERED: MYLICON PO PRN
[2021-10-10] MEDS ORDERED: COLACE PO PRN
[2021-10-10] MEDS ORDERED: GENASYME PO PRN
[2021-10-10] MEDS ORDERED: MIRALAX PO PRN
[2021-10-10] MEDS: NS 1000ML 1,000 ML IV SCH ×2 (00:05→14:00)
[2021-10-10 00:34] VITALS: BP 127/80
[2021-10-10] MEDS: ANCEF 2 GM/D5W 50ML 50 ML IV SCH (02:22)
[2021-10-10] MEDS: OXY-IR PO PRN ×2 (04:37→11:27)
[2021-10-10 04:43] VITALS: BP 117/65
[2021-10-10] MEDS: LEVOTHYROXINE SODIUM PO SCH (06:05)
[2021-10-10 06:17] LABS: BASOPHIL % 0.5 % (0.0-0.2); EOSINOPHIL % 0.1 % (0.0-5.0); LYMPHOCYTES # 1.19 10^3/uL1 (1.0-4.8); LYMPHOCYTES % 14.2 % (24.0-44.0); MEAN CORP HGB 33.1 pg (26-34); MONOCYTES # 0.4 10^3/uL (0.3-0.8); MONOCYTES % 4.8 % (5.0-12.0); NEUTROPHIL # 6.4 10^3/uL (1.8-7.7); NEUTROPHILS % 76.8 % (41.0-85.0); PLATELET COUNT 240 10^3/uL (150-400); RED CELL DISTRIBUTION WIDTH 17.2 % (11.5-14.5)
[2021-10-10 06:28] LABS: CARBON DIOXIDE 26.8 mmol/L (20.0-32)
[2021-10-10 08:00] VITALS: BP 126/72
--- NOTE | 2021-10-10 10:53 | PRM.PN ---
Subjective Subjective Date: Oct 10, 2021 Time: 09:00 Subjective As per patient's sister, patient had upset stomach and she went to the bathroom several times and she vomited once. Creatinine today is 1.61, trended down from 1.7. Baseline is around 1.3. Continues on IV fluids. I discussed the case with infectious disease Dr. Poe regarding frequency of IV antibiotic as an outpatient to make it more convenient. He recommended ceftriaxone could be the second line of treatment 2 g IV daily for 2 weeks followed by Augmentin 875 mg p.o. daily for 4 weeks for treatment of osteomyelitis.Patient to get the IV antibiotic in the hospital, family will bring the patient daily. Review of Systems Gastrointestinal: Nausea, Diarrhea Musculoskeletal: neck pain, hand pain (Left thumb pain/Postoperative) Allergies: Coded Allergies: codeine (Verified Allergy, Unknown, 10/05/21) Objective Vitals and I/O Vital Sign - Last 24 Hours 10/09/21 10/09/21 10/09/21 10/09/21 12:00 13:46 16:14 16:18 Temp 98.6 98.6 Pulse 74 70 Resp 19 18 B/P (MAP) 114/72 (86) Pulse Ox 96 95 O2 Delivery Room Air* Room Air Room Air* Room Air O2 Flow Rate 0 0.00 0 0.00 FiO2 21 21 10/09/21 10/09/21 10/10/21 10/10/21 21:31 22:54 00:34 04:43 Temp 99.1 98.6 98.6 Pulse 88 88 102 86 Resp 18 18 18 20 B/P (MAP) 136/84 (101) 127/80 (96) 117/65 (82) Pulse Ox 91 91 91 93 O2 Delivery Room Air* Nasal Cannula* Room Air* Room Air* O2 Flow Rate 0 2 0 0 FiO2 21 28 21 21 10/10/21 06:52 O2 Delivery Room Air O2 Flow Rate 0.00 Intake and Output 10/10/21 07:00 Intake Total 650 ml Balance 650 ml General: Alert, mild distress HEENT: Atraumatic Neck: Supple, No JVD Lungs: Clear to auscultation, Normal air movement Heart: Regular rate, Normal S1, Normal S2 Abdomen: Soft, No tenderness Extremities: No clubbing, No cyanosis Skin: Other (Dressing applied to left thumb.) Neuro: Sensation intact, Other (Patient has Down syndrome) Psych/Mental Status: Other (Down syndrome) All Results(Lab/Rad) Laboratory Tests Test 10/05/21 14:00 10/05/21 14:18 10/05/21 15:13 10/06/21 04:05 White Blood Count 11.2 10^3/uL 8.6 10^3/uL Red Blood Count 3.32 10^6/uL 3.28 10^6/uL Hemoglobin 11.1 g/dL 11.0 g/dL Hematocrit 36.3 % 35.0 % Mean Corpuscular Volume 109.3 fL 106.7 fL Mean Corpuscular Hemoglobin 33.4 pg 33.5 pg Mean Corpuscular Hemoglobin Concent 30.6 g/dL 31.4 g/dL Red Cell Distribution Width 17.7 % 16.9 % Platelet Count 307 10^3/uL 291 10^3/uL Mean Platelet Volume 12.4 fL 12.3 fL Neutrophils (%) (Auto) 63.2 % 53.8 % Lymphocytes (%) (Auto) 27.6 % 37.0 % Monocytes (%) (Auto) 5.0 % 5.1 % Neutrophils # (Auto) 7.1 10^3/uL 4.6 10^3/uL Lymphocytes # (Auto) 3.09 10^3/uL1 3.19 10^3/uL1 Monocytes # (Auto) 0.6 10^3/uL 0.4 10^3/uL Absolute Immature Granulocyte (auto 0.13 10^3 u/L 0.08 10^3 u/L Absolute Eosinophils (auto) 0.3 10^3/uL 0.3 10^3/uL Immature Granulocytes % 1.20 % 0.90 % Eosinophils % 2.7 % 2.9 % Basophils % 0.3 % 0.3 % Basophils # 0.0 10^3/uL 0.0 10^3/uL Sodium Level 140 mmol/L 141 mmol/L Potassium Level 4.0 mmol/L 3.7 mmol/L Chloride Level 104.0 mmol/L 105.0 mmol/L Carbon Dioxide Level 25.6 mmol/L 25.2 mmol/L Glucose Level 143 mg/dL 138 mg/dL Blood Urea Nitrogen 13 mg/dL 17 mg/dL Creatinine 1.44 mg/dL 1.49 mg/dL Calcium Level 8.3 mg/dL 7.9 mg/dL Anion Gap 14.4 14.5 Estimated GFR () 48.3 46.4 Est GFR (CKD-EPI)(Non-Afr Italian) 39.9 38.4 BUN/Creatinine Ratio 9.0 11.0 Lactic Acid Level 1.6 mmol/L Prothrombin Time 11.0 SEC Prothrombin Time INR (Non-Therap) 1.1 Activated Partial Thromboplast Time 29.6 SEC Thyroid Stimulating Hormone (TSH) 58.190 mIU/mL Serum HCG, Qualitative NEGATIVE Current Medications Medications (Trade) Dose Ordered Sig/Roxanne Route PRN Reason Start Time Stop Time Status Last Admin Dose Admin Morphine Sulfate (Morphine Sulfate) 4 mg STAT STAT IV 10/05/21 13:53 10/05/21 13:54 DC 10/05/21 14:20 Vancomycin HCl 1 gm/Sodium Chloride 250 ml @ 175 mls/hr STAT STAT IV 10/05/21 13:53 10/05/21 15:18 DC 10/05/21 14:54 Piperacillin Sod/ Tazobactam Sod 3.375 gm/Sodium Chloride 100 ml @ 200 mls/hr STAT STAT IV 10/05/21 13:53 10/05/21 14:22 DC 10/05/21 14:20 Morphine Sulfate (Morphine Sulfate) 2 mg STK-MED ONCE .ROUTE 10/05/21 14:02 10/05/21 14:03 DC Sodium Chloride 100 ml @ ud STK-MED ONCE IV 10/05/21 14:03 10/05/21 14:03 DC Sodium Chloride 250 ml @ ud STK-MED ONCE .ROUTE 10/05/21 14:36 10/05/21 14:37 DC Vancomycin HCl 1 ml @ ud STK-MED ONCE .ROUTE 10/05/21 14:37 10/05/21 14:37 DC Piperacillin Sod/ Tazobactam Sod 3.375 gm/Sodium Chloride 100 ml @ 200 mls/hr Q6H IV 10/05/21 18:30 10/05/21 21:36 DC Morphine Sulfate (Morphine Sulfate) 4 mg Q6HR PRN IV PAIN 7 - 10 10/05/21 18:30 11/04/21 18:29 Acetaminophen (Tylenol) 650 mg Q6H PRN PO PAIN 1 - 3 10/05/21 18:30 11/04/21 18:29 10/06/21 02:53 Diphtheria/ Tetanus/Acell Pertussis (Boostrix) 0.5 ml ONCE ONCE IM 10/05/21 18:30 10/05/21 19:54 DC 10/05/21 22:43 Oxycodone HCl (Oxy-Ir) 5 mg Q6HR PRN PO pain 4-6 10/05/21 20:30 11/04/21 20:29 10/06/21 11:33 Sodium Chloride 100 ml @ ud STK-MED ONCE IV 10/05/21 21:34 10/05/21 21:34 DC Sodium Chloride 250 ml @ ud STK-MED ONCE .ROUTE 10/05/21 21:35 10/05/21 21:35 DC Piperacillin Sod/ Tazobactam Sod 3.375 gm/Sodium Chloride 100 ml @ 200 mls/hr Q6H IV 10/05/21 20:30 11/04/21 20:29 10/06/21 08:30 Diphtheria/ Tetanus/Acell Pertussis (Boostrix) 0.5 ml STK-MED ONCE IM 10/05/21 21:41 10/05/21 21:41 DC Sodium Chloride 100 ml @ ud STK-MED ONCE IV 10/06/21 02:34 10/06/21 02:35 DC Sodium Chloride 250 ml @ ud STK-MED ONCE .ROUTE 10/06/21 09:51 10/06/21 09:51 DC Assessment/Plan Assessment/Plan Assessment/Plan Recommendations as per infectious disease: Reviewed and agree 40-year-old female with previous history of Down syndrome presented with left thumb swollen and erythema IMPRESSION: Left thumb first digit osteomyelitis with abscess XR suggestive of soft tissue swelling of the thumb with osteolysis of the tuft of the distal phalanx of the thumb suspicious for osteomyelitis s/p Debridement. cultures growing MSSA. Down syndrome Obesity 10/09/2021 Patient sitting up in bed , does not appear to be in any distress. Patient underwent: Incision and debridement of skin, subcutaneous tissue and bone of the left thumb distal phalanx. Continue IV antibiotic. Creatinine today went up to 1.72. Discussed with patient's sister, no history of chronic kidney disease as per her knowledge. We will keep the patient in extra day for more IV fluids and to monitor her kidney function. Possible discharge in a.m.If stable with home health to continue IV antibiotic for 2 weeks followed by 4 weeks of oral antibiotic. Case discussed with patient's sister 10/10/2021 As per patient's sister, patient had upset stomach and she went to the bathroom several times and she vomited once. Creatinine today is 1.61, trended down from 1.7. Baseline is around 1.3. Continues on IV fluids. I discussed the case with infectious disease Dr. Poe regarding frequency of IV antibiotic as an outpatient to make it more convenient. He recommended ceftriaxone could be the second line of treatment 2 g IV daily for 2 weeks followed by Augmentin 875 mg p.o. daily for 4 weeks for treatment of osteomyelitis.Patient to get the IV antibiotic in the hospital, family will bring the patient daily. Possible discharge in a.m. if clinically better and creatinine continues to trend down. Problems: (1) Osteomyelitis of finger of left hand Status: Acute ICD Code: M86.9 - Osteomyelitis, unspecified SNOMED: [id number], 557549840 (2) Abscess around left thumbnail Status: Acute ICD Code: L03.012 - Cellulitis of left finger SNOMED: [id number], 25605613 (3) Acute kidney injury ICD Code: N17.9 - Acute kidney failure, unspecified SNOMED: 4135015, 58985494 (4) Down syndrome ICD Code: Q90.9 - Down syndrome, unspecified SNOMED: 23121932, 324461876 SILVANA CARRILLO MD Oct 10, 2021 10:53
[2021-10-10] MEDS ORDERED: ZOFRAN IV PRN (11:00)
[2021-10-10] MEDS: ROCEPHIN 2,000 MG in NS 100ML 100 ML IV SCH (11:32)
--- NOTE | 2021-10-10 17:10 | NUR ---
OXYGEN PT'S O2 SATS ARE 82% ON ROOM AIR; RESPIRATORY CHECKED PT'S SATS AND PLACED O2 VIA NC 2L; SATS TAN TO 93%.
[2021-10-10 20:00] VITALS: BP 111/65
[2021-10-10] MEDS: TYLENOL PO PRN (21:05)
[2021-10-11] MEDS: NS 1000ML 1,000 ML IV SCH ×3 (00:05→10:45)
[2021-10-11 00:53] VITALS: BP 90/50
--- NOTE | 2021-10-11 02:55 | NUR ---
patient 02 stats fall into the 70s while sleeping , have replaced 02 4 times this shift , taped to face , patient will not leave in place , sleep apnea in present , also sleeps with head slightly elevated and has short neck and round due to wieght and downs syndrome , sister and mother both present in room and unable to keep in place , 02 stats while awake are in the 90's
[2021-10-11 05:45] LABS: BASOPHIL % 0.9 % (0.0-0.2); EOSINOPHIL % 0.2 % (0.0-5.0); LYMPHOCYTES # 1.69 10^3/uL1 (1.0-4.8); LYMPHOCYTES % 38.1 % (24.0-44.0); MEAN CORP HGB 33.7 pg (26-34); MONOCYTES # 0.2 10^3/uL (0.3-0.8); MONOCYTES % 5.2 % (5.0-12.0); NEUTROPHIL # 2.5 10^3/uL (1.8-7.7); NEUTROPHILS % 55.6 % (41.0-85.0); PLATELET COUNT 164 10^3/uL (150-400); RED CELL DISTRIBUTION WIDTH 17.9 % (11.5-14.5)
[2021-10-11 05:54] VITALS: BP 106/59
[2021-10-11 06:05] LABS: CARBON DIOXIDE 26.8 mmol/L (20.0-32)
[2021-10-11] MEDS: LEVOTHYROXINE SODIUM PO SCH (07:11)
[2021-10-11] MEDS: OXY-IR PO PRN ×2 (09:28→10:15)
[2021-10-11] MEDS: ROCEPHIN 2,000 MG in NS 100ML 100 ML IV SCH (10:44)
[2021-10-11 11:05] VITALS: BP 92/45
--- NOTE | 2021-10-11 12:31 | NUR ---
THIS NURSE RECIEVED NOTIFICATION FROM THE LAB THAT THE PATIENT HAS TESTED POSITIVE FOR COVID. AT [address] LION TO NOTIFY HIM OF POSITIVE RESULTS.
[2021-10-11] MEDS ORDERED: LEVO25TA4 PO (13:20)
[2021-10-11] MEDS ORDERED: ACET325T12 PO (13:20)
--- NOTE | 2021-10-11 13:25 | NUR ---
PRESCRIPTIONS PRESCRIPTIONS CALLED INTO [facility] BY THIS NURSE AT THIS TIME.
--- NOTE | 2021-10-11 13:29 | PRM.DC ---
DISCHARGE SUMMARY Y Date of Admission: 10/05/2021 Date of Discharge: 10/11/2021 FINAL DIAGNOSES: 1. Osteomyelitis of the left thumb status postdebridement 2. Down syndrome 3. Hypothyroidism 4. COVID 19 infection Please refer to my History and Physical to the point of my impression. 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 She was started on IV antibiotics and Ortho was consulted and took her to surgery and did a debridement with cleaning and closure of the wound. Cultures have come back for staph species that are pansensitive and ID was consulted and recommended for her to have 2 weeks of IV Rocephin therapy and then transitioned over to oral Augmentin therapy for 4 weeks afterwards. She did have some thyroid studies that were abnormal and she was started on low-dose levothyroxine in the hospital. She also continues to have some persistent low- grade temperatures with a cough for the past couple of days and an incentive spirometry was started for her but 8 respiratory viral panel was done this morning and she was positive for COVID-19 infection. She is not requiring any oxygen at the time and has a mild cough with some congestion. We have set up for her to have outpatient Rocephin treatment for the next 2 weeks and then switch over to Augmentin thereafter. I talked to her family members about quarantining her when she goes home today with her COVID-19 infection. Diet: Per home routine Activity: As tolerated at home; quarantine for the next 5 days Medications: 1. Levothyroxine 25 mcg p.o. daily 2. Rocephin 2 g IV daily for 14 days 3. Augmentin 875 mg p.o. twice daily x28 days after Rocephin is done Follow-up with: 1. Dr. Titus next week 2. Follow-up with Dr. Jorgensen in 10 days DEBBIE CLEVELAND MD Oct 11, 2021 13:29
[2021-10-11 15:18] VITALS: BP 140/78
== END 2021-10-11 15:45 | disposition home or self-care (01) | DRG 515 ==
LOC: ER 11:39 → MS 16:22
PROVIDERS: ADMIT Internal Medicine; ATTEND Internal Medicine
PROC: 0PBS0ZZ Excision of Left Thumb Phalanx, Open Approach (ICD-10-PCS; principal; 2021-10-08 11:15)
DX: M86.142 Other acute osteomyelitis, left hand (principal); U07.1 COVID-19; B00.89 Other herpesviral infection; I96 Gangrene, not elsewhere classified; N17.9 Acute kidney failure, unspecified; L02.512 Cutaneous abscess of left hand; Z68.41 Body mass index [BMI] 40.0-44.9, adult; E66.9 Obesity, unspecified; B95.7 Other staphylococcus as the cause of diseases classified elsewhere; B95.61 Methicillin susceptible Staphylococcus aureus infection as the cause of diseases classified elsewhere; E03.9 Hypothyroidism, unspecified; Z82.49 Family history of ischemic heart disease and other diseases of the circulatory system; Q90.9 Down syndrome, unspecified; Z82.5 Family history of asthma and other chronic lower respiratory diseases; Z83.3 Family history of diabetes mellitus; Z83.49 Family history of other endocrine, nutritional and metabolic diseases; Z78.0 Asymptomatic menopausal state
CPT/HCPCS: 36415; 36569; 80048; 80053; 80202; 83001; 83605; 84443; 84703; 85025; 85610; 85730; 87040; 87070; 87077; 87186; 87637; 90715; 97163; 97597; 99285; A4217; G0378; J0690; J0696; J1100; J2001; J2405; J2543; J3010; J3370; J3490; J7030; J7050; J7120; 73130-LT; 97602-GP; A9270; J0692

== ENCOUNTER 2021-10-13 23:25 | Emergency (ER) | payer MEDICARE, MEDICAID ==
[~2021-10-13] VITALS: Ht 154.9 cm; Wt 99.8 kg
[~2021-10-13 23:25] MED LIST: ACET325T12 PO; LEVO25TA4 PO
[2021-10-13] MEDS ORDERED: AMIDATE IV ONE (23:26)
[2021-10-13] MEDS ORDERED: QUELICIN IV ONE (23:26)
[2021-10-14] MEDS ORDERED: DUO 0.5-3(2.5) MG/3 ML IH ONE ×2 (00:03→00:20)
[2021-10-14] MEDS ORDERED: DUO 0.5-3(2.5) MG/3 ML IH STA (00:03)
[2021-10-14] MEDS ORDERED: SOLU-MEDROL IV STA (00:03)
[2021-10-14] MEDS ORDERED: SOLU-MEDROL ONE (00:06)
[2021-10-14 00:29] LABS: BASOPHIL % 0.2 % (0.0-0.2); LYMPHOCYTES # 1.42 10^3/uL1 (1.0-4.8); LYMPHOCYTES % 28.5 % (24.0-44.0); MEAN CORP HGB 33.1 pg (26-34); MONOCYTES # 0.1 10^3/uL (0.3-0.8); MONOCYTES % 2.2 % (5.0-12.0); NEUTROPHIL # 3.4 10^3/uL (1.8-7.7); NEUTROPHILS % 69.1 % (41.0-85.0); PLATELET COUNT 140 10^3/uL (150-400); RED CELL DISTRIBUTION WIDTH 18.4 % (11.5-14.5)
--- NOTE | 2021-10-14 00:33 | DIREP ---
PROCEDURE:CHEST 1 VIEW COMPARISON:[facility], CR, XRAY CHEST 2 VWS, 03/12/2019, 11:25 PM. INDICATIONS:covid+, sob FINDINGS: LUNGS/PLEURA:Diffuse bilateral airspace infiltrates with relative sparing of the apices. Bilateral pleural effusions may be present. CARDIAC:Size difficult to evaluate due to overlying opacities. MEDIASTINUM:Normal BONES:Normal OTHER:Tip of right PICC line overlies the right axillary vein. CONCLUSION:Findings consistent with CHF/volume overload or pneumonia. Dictated by: Dominique Galvan MD on 10/14/2021 at 00:29 AM
[2021-10-14 00:40] VITALS: BP 118/59
--- NOTE | 2021-10-14 00:50 | NUR ---
CRITICAL LAB D.DIMER 0.69. NOTIFIED DR. ESPARZA. NO NEW ORDERS AT THIS TIME.
[2021-10-14 00:54] LABS: ABG PCO2 33.3 mmHg (35.0-45.0); ABG PH 7.436 (7.350-7.450); BE(B) -1.5 mmol/L (-2.0-2.0); HCO3act 21.9 mmol/L (22.0-26.0); pO2 57.3 mmHg (80.0-100.0)
[2021-10-14 00:56] LABS: CARBON DIOXIDE 26.8 mmol/L (20.0-32)
[2021-10-14] MEDS ORDERED: ATIVAN IV STA (01:00)
[2021-10-14] MEDS ORDERED: ATIVAN ONE (01:02)
--- NOTE | 2021-10-14 01:50 | NUR ---
Dr. argueta at bedside spoke with pt sisterpt sao2 63% on 50% venti mask, pt labored breathing rate 42, Dr Garcia notified pt moved to ER room 1 RT Sheila notified , Deann hutson notified, Kathia Emery profile mill operator tape control at bedside. Halina Hdz RN at bedside. . Dr. North at bedside with pt sister discusssed need for intubation. Sister agreed to intubation .
--- NOTE | 2021-10-14 01:55 | NUR ---
Etomidate 20 mg administered to right PICC.
--- NOTE | 2021-10-14 01:56 | NUR ---
Succinycholine [address] North at head of bed.
--- NOTE | 2021-10-14 01:57 | NUR ---
BP 129/85 sao2 63% p- 96 ETT 7.0 20 at lip line placed with glide scope by Dr. North.
--- NOTE | 2021-10-14 02:02 | NUR ---
16 fr. ngt palced left nare x 1 attempt gastric contents returned, chest xray for placement ordered.
--- NOTE | 2021-10-14 02:04 | NUR ---
CXR FOR EET AND NGT PLACEMENT Addendum: 10/14/21 at 0244 by [facility] CXR FOR ETT AND NGT PLACEMENT
[2021-10-14] MEDS ORDERED: DIPRIVAN 100 ML IV ONE ×2 (02:08→04:35)
--- NOTE | 2021-10-14 02:10 | NUR ---
16 FR. THOMPSON CATEHTER PLACED X 1 ATTEMPT PRIVACY SPECIALIST CLEAR YELLOW URINE RETUN. SPECIMEN TO LAB, THOMPSON TO GRAVITY, TUBE ANCHOR TO RIGHT INNER THIGH.
--- NOTE | 2021-10-14 02:10 | NUR ---
PROPOFOL 5 MCG/KG/MIN STARTED
--- NOTE | 2021-10-14 02:15 | NUR ---
PROPOFOL TITRATED TO 10 MCG/KG/MIN
--- NOTE | 2021-10-14 02:16 | DIREP ---
PROCEDURE:CHEST 1 VIEW COMPARISON:[facility], CR, XRAY CHEST SINGLE VW, 10/14/2021, 00:09 AM. INDICATIONS:post extubation FINDINGS: LUNGS/PLEURA:Placement of ETT at the orifice of the left mainstem bronchus and should be retracted. Diffuse bilateral interstitial and airspace infiltrates. CARDIAC:Size difficult to evaluate due to overlying opacities. MEDIASTINUM:Normal BONES:Normal OTHER:NGT courses in the distal stomach and off the field of view. CONCLUSION: 1. Low-lying ETT. 2. Findings consistent with CHF/volume overload or pneumonia. Dictated by: Dominique Galvan MD on 10/14/2021 at 02:12 AM
--- NOTE | 2021-10-14 02:16 | NUR ---
PROPOFOL INCREASED TO 15 MCG/KG/MIN
--- NOTE | 2021-10-14 02:20 | NUR ---
PROPOFOL INCREASEDTO 20 MCG/KG/MIN
[2021-10-14] MEDS ORDERED: DIPRIVAN 100 ML IV PRN (02:30)
[2021-10-14] MEDS ORDERED: NS 1000ML 1,000 ML ONE (02:31)
[2021-10-14] MEDS ORDERED: NS 1000ML 1,000 ML STA (02:31)
--- NOTE | 2021-10-14 02:40 | ER.PDOC ---
General Chief Complaint: Requesting Medical Care Stated Complaint: DIFF BREATHING/COVID + Time seen by MD: 23:36 Source: patient Exam Limitations: no limitations History of Present Illness Initial Comments 40-year-old female with Down syndrome, tested positive for COVID today, she has been working harder to breathe, coughing as well. 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 Her wound is well managed by her hand surgeon. No history of lung disease. No history of cardiac disease. Allergies: Coded Allergies: codeine (Verified Allergy, Unknown, 10/05/21) Home Meds Active Scripts Acetaminophen (TYLENOL) 325 Mg Tablet, 650 MG PO Q6H PRN for PAIN 1 - 3, #1 BOTTLE 0 Refills Prov:DEBBIE CLEVELAND MD 10/11/21 Levothyroxine Sodium (LEVOTHYROXINE SODIUM) 25 Mcg Tablet, 25 MCG PO ACB, #30 TAB 3 Refills Prov:DEBBIE CLEVELAND MD 10/11/21 Past Medical History Medical History: other Surgical History: appendectomy, cholecystectomy Social History Alcohol Use: none Drug Use: none Review of Systems All Other Systems: Reviewed and Negative Physical Exam General Appearance: Severe Distress, Obese HEENT: Other (Dry oral mucosa) Neck: Normal Inspection Respiratory: lungs clear, no respiratory distress Cardiovascular: Normal Peripheral Pulses, No Edema, No JVD Gastrointestinal: Non Tender, Soft Extremities: Normal Inspection, No Pedal Edema Neurologic/Psychiatric: Alert, Other (No facial droop, moves all extremities spontaneously) Skin: Pallor Lymphatic: No Adenopathy Intubation Intubation : Time of Intubation: 02:00 Intubation Method: orotracheal Blade: glidescope Tube Size (cm): 7.0 Preoxygenated: Yes Medications: Etomidate, Succinylcholine Breath Sounds after Intubation: equal Intubation Complications: no complications Post Intubation Xray: Yes Progress/Xray Impression: good position Results/Orders Results/Orders Orders - SWETA ESPARZA MD Arterial Blood Gas (10/13/21 23:57) Cbc With Auto Diff (10/13/21 23:57) Comprehensive Metabolic Panel (10/13/21 23:57) Probnp B-Type Wolf Hunter (10/13/21 23:57) D-Dimer (10/13/21 23:57) PT (10/13/21 23:57) Partial Thromboplastin Time. (10/13/21 23:57) Blood Culture (10/13/21 23:57) Ekg-Routine (10/13/21 23:57) Xr Chest 1v (10/13/21 23:57) Troponin I High Sensitivity (10/13/21 23:57) Lactic Acid(Ml) (10/13/21 23:57) Ipratropium/Albuterol Sulfate (Duo 0.5-3 (10/14/21 00:03) Methylprednisolone Sod Succ (Solu-Medrol (10/14/21 00:03) Ipratropium/Albuterol Sulfate (Duo 0.5-3 (10/14/21 00:03) Methylprednisolone Sod Succ (Solu-Medrol (10/14/21 00:06) Ipratropium/Albuterol Sulfate (Duo 0.5-3 (10/14/21 00:20) Lorazepam (Ativan) (10/14/21 01:00) Lorazepam (Ativan) (10/14/21 01:02) Xr Chest 1v (10/14/21 01:51) Propofol/Pf (Diprivan) (10/14/21 02:30) Propofol/Pf (Diprivan) (10/14/21 02:08) Arterial Blood Gas (10/14/21 02:30) 0.9 % Sodium Chloride (Ns 1000ml) (10/14/21 02:31) 0.9 % Sodium Chloride (Ns 1000ml) (10/14/21 02:31) Vital Signs Date Time Temp Pulse Resp B/P (MAP) Pulse Ox O2 Delivery O2 Flow Rate FiO2 10/14/21 00:40 99.4 106 36 43 10/14/21 00:40 99.4 106 36 10/14/21 00:40 99.4 106 36 118/59 (78) 43 Room Air* 0 21 10/14/21 00:29 99 24 91 Aerosol Mist+ 7 50 10/14/21 00:26 105 24 58 Room Air* 0 21 Administered Medications Medications (Trade) Dose Ordered Sig/Roxanne Route PRN Reason Start Time Stop Time Status Last Admin Dose Admin Albuterol/ Ipratropium (Duo 0.5-3(2.5) Mg/3 ml) 9 ml STAT STAT IH 10/14/21 00:03 10/14/21 00:05 DC 10/14/21 00:03 9 ML Lorazepam (Ativan) 1 mg STAT STAT IV 10/14/21 01:00 10/14/21 01:01 DC 10/14/21 01:05 1 MG Methylprednisolone Sodium Succinate (Solu-Medrol) 125 mg STAT STAT IV 10/14/21 00:03 10/14/21 00:05 DC 10/14/21 00:40 125 MG Laboratory Tests Test 10/14/21 00:11 10/14/21 00:20 Blood Gas Sample Site RT RADIAL ARTERY Blood pH 7.436 (7.350-7.450) Blood Gas PCO2 33.3 mmHg (35.0-45.0) L Blood Gas PO2 57.3 mmHg (80.0-100.0) L Blood Gas HCO3 21.9 mmol/L (22.0-26.0) L Blood Gas Base Excess -1.5 mmol/L (-2.0-2.0) Abraham Test POSITIVE Arterial Blood Oxygen Saturation % (94.0-97.00) Deoxyhemoglobin 10.5 % (0.0-5.0) H Carboxyhemoglobin 0.1 % (0.0-3.9) Methemoglobin 0.3 % (0.00-5.0) Total Hemoglobin 10.2 % (12.0-17.8) L Oxygen Delivery Method ROOM AIR FiO2 21 % (20-101) Total Carbon Dioxide 22.9 mmol/L (23-27) L White Blood Count 5.0 10^3/uL (4.5-11.0) Red Blood Count 2.96 10^6/uL (4.00-5.20) L Hemoglobin 9.8 g/dL (12.0-15.0) L Hematocrit 31.2 % (36.0-46.0) L Mean Corpuscular Volume 105.4 fL (78-100) H Mean Corpuscular Hemoglobin 33.1 pg (26-34) Mean Corpuscular Hemoglobin Concent 31.4 g/dL (33-36.5) L Red Cell Distribution Width 18.4 % (11.5-14.5) H Platelet Count 140 10^3/uL (150-400) L Mean Platelet Volume 11.9 fL (7.8-11.0) H Neutrophils (%) (Auto) 69.1 % (41.0-85.0) Lymphocytes (%) (Auto) 28.5 % (24.0-44.0) Monocytes (%) (Auto) 2.2 % (5.0-12.0) L Neutrophils # (Auto) 3.4 10^3/uL (1.8-7.7) Lymphocytes # (Auto) 1.42 10^3/uL1 (1.0-4.8) Monocytes # (Auto) 0.1 10^3/uL (0.3-0.8) L Absolute Immature Granulocyte (auto 0.09 10^3 u/L (0-2) Absolute Eosinophils (auto) 0.0 10^3/uL (0.0-0.2) Immature Granulocytes % 1.80 % (0.00-0.50) H Eosinophils % 0.0 % (0.0-5.0) Basophils % 0.2 % (0.0-0.2) Basophils # 0.0 10^3/uL (0.0-0.1) Prothrombin Time 10.3 SEC (9.1-11.5) Prothrombin Time INR (Non-Therap) 1.0 Activated Partial Thromboplast Time 35.2 SEC (22.5-33.1) H D-Dimer 0.69 mg/L (0.19-0.49) *H Sodium Level 143 mmol/L (132-145) Potassium Level 4.3 mmol/L (3.6-5.2) Chloride Level 106.0 mmol/L (96-109) Carbon Dioxide Level 26.8 mmol/L (20.0-32) Anion Gap 14.5 Blood Urea Nitrogen 19 mg/dL (7-18) H Creatinine 1.76 mg/dL (0.59-1.40) H Estimated GFR () 38.3 (>/=60) Est GFR (CKD-EPI)(Non-Afr S[place]) 31.7 (>/=60) BUN/Creatinine Ratio 10.0 Glucose Level 190 mg/dL (70-110) H Lactic Acid Level 1.9 mmol/L (0.5-1.9) Calcium Level 7.9 mg/dL (8.4-10.5) L Total Bilirubin 0.2 mg/dL (0.2-1.0) Aspartate Amino Transferase (AST) 45 U/L (0-35) H Alanine Aminotransferase (ALT) 21 U/L (12-78) Alkaline Phosphatase 115 U/L (50-136) Troponin I High Sensitivity 15 ng/L (0-50) Pro-B-Type Natriuretic Peptide 498 pg/mL (0-125) H Total Protein 7.1 g/dL (6.4-8.2) Albumin 2.5 g/dL (3.4-5.0) L Globulin 4.6 Albumin/Globulin Ratio 0.543 Progress Progress X-ray shows diffuse COVID-pneumonia, she was satting below 90% on a nonrebreather mask, successfully intubated her, currently on 100% FiO2, PEEP of 10, respiratory of 20 on the vent. Blood pressure dropped slightly after propofol, gave her fluid bolus IV ER DEPART Departure Time of Disposition: 02:40 Disposition: 09 ADMITTED INPATIENT Impression: Primary Impression: Acute respiratory failure with hypoxia Additional Impression: Pneumonia due to COVID-19 virus Condition: Critical Referrals: MARY MERAZ MD (PCP) PRIMARY CARE PROVIDER Duration or Time Spent with Pa: 10m Problem Qualifiers SWETA ESPARZA MD Oct 14, 2021 02:40
[2021-10-14] MEDS ORDERED: ZOSYN 3.375 GM 3.375 GM in NS 100ML 100 ML IV STA (02:44)
[2021-10-14] MEDS ORDERED: VANCOMYCIN 1.5 GM/300 ML BAG 300 ML IV STA (02:44)
[2021-10-14 02:51] LABS: ABG PCO2 42.4 mmHg (35.0-45.0); ABG PH 7.311 (7.350-7.450); HCO3act 20.9 mmol/L (22.0-26.0); pO2 43.3 mmHg (80.0-100.0)
--- NOTE | 2021-10-14 02:55 | NUR ---
20 ARASELI IV STARTED IN RIGHT WRIST X 2 ATTEMPTS ASEPTIC TECH GOOD BLOOD RETURN FLUSHED WITH 10 ML NS NO S/S OF INFILTRATION, J LOOP APPLIED SECURED WITH TAPE , TEGADERM AND COBAN.
[2021-10-14] MEDS ORDERED: NS 100ML 100 ML IV ONE (02:57)
[2021-10-14] MEDS ORDERED: VANCOMYCIN 1.5 GM/300 ML BAG 300 ML IV ONE (02:58)
--- NOTE | 2021-10-14 03:16 | NUR ---
[facility] ZULY ARZATE ACCEPTING PHYSICIAN: DR. MORAN @ [id number] [facility]? UNKNOWN AT THIS TIME FAX FACESHEET TO [phone]
--- NOTE | 2021-10-14 03:30 | NUR ---
FAMILY AT BEDSIDE
--- NOTE | 2021-10-14 04:00 | NUR ---
[facility]
--- NOTE | 2021-10-14 04:47 | NUR ---
PT TRANSFERED TO EMS STRETCHER WITH ASSIST X 5 , VENT EXCHANGE COMPLETED PT TOLERATED WELL. SISTER OF PT STATED AT THIS TIME PT WAS PUT ON LEVOTHYROXINE ON TUESDAY,
--- NOTE | 2021-10-14 04:51 | NUR ---
CARE TRANSFERED TO [facility] EMT-P WITH [facility]
--- NOTE | 2021-10-14 05:18 | NUR ---
40 y/o white female pmhx downs syndrome, hypothyroid, amputation of left thumb covid positive x 3 days, , pt arrived resp shallow labored SAO2 43% on room air, recieved duo neb, solumedrol 125 mg, ativan 1 mg, etomodate 20 mg, succ.150 mg, ETT 7.0 20 AT LIP LINE, 16 FR NGT, 16 FR THOMPSON, PICC LINE RIGHT UPPER ARM, 20 ARASELI RIGHT WRIST, VANCOMYCIN 1.5 GRAMS iv , ZOSYN3.375 MG IV, NS 1000ML , PROPOFOL AT 20 MCG/KG/MIN. REPORT CALLED TO DORA WARE CHARGE NURSE [facility].
--- NOTE | 2021-10-14 14:08 | PCM.EKG ---
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
== END 2021-10-14 04:55 | disposition admitted as inpatient to this hospital (09) ==
LOC: ER 23:25
DX: U07.1 COVID-19 (principal); J96.01 Acute respiratory failure with hypoxia; J12.82 Pneumonia due to coronavirus disease 2019; Q90.9 Down syndrome, unspecified; Z88.5 Allergy status to narcotic agent; Z90.49 Acquired absence of other specified parts of digestive tract
CPT/HCPCS: 99285; 71045 ×2; 93005; 31500; 96365; 96366; 80053; 85025; 36415; 85379; 84484; 87040 ×2; 83880; 85610 ×2; 85730; 82803 ×2; 36600 ×2; 94640; J0330; J7030; J2060; J3370; J2543; J2930; 83605; 94002; J3490